=== PATIENT | male | born 1985 | race Caucasian/White ===

== ENCOUNTER 2021-04-26 13:36 | Emergency (ER) | payer MEDICAID ==
[~2021-04-26] VITALS: Ht 162.6 cm; Wt 50.0 kg
[2021-04-26] MEDS ORDERED: hydrocortisone sod succ/PF 250mg/2ml inj. IV ONE (13:50)
[2021-04-26] MEDS ORDERED: normal saline 1000ml 1,000 ML IV SCH ×3 (13:50→16:05)
[2021-04-26] MEDS ORDERED: potassium CL 20mEq in D5-1/2NS 1,000 ML IV PRN ×2 (13:50→16:05)
[2021-04-26] MEDS ORDERED: insulin regular, human 10 units/0.1 ml syringe IV PRN (13:50)
[2021-04-26] MEDS ORDERED: metoclopramide 5 mg/ml inj IV ONE (14:00)
[2021-04-26] MEDS: normal saline 1000ml 1,000 ML IV SCH ×2 (14:18→14:46)
[2021-04-26 14:29] LABS: ABG HCO3 13.2 mmol/L (22.0-26.0); ABG OXYGEN SATURATION 97.9 % (94-97); ABG PCO2 (T) 24.3 mmHg (35.0-48.0); ABG PO2 (T) 108.5 mmHg (75.0-100.0); ALLEN'S TEST POSITIVE; FCOHb 0.5 % (0.0-3.9); FMetHb 0.2 % (0.0-1.5); FO2Hb 97.2 % (94-97); TOTAL HEMOGLOBIN 16.7 G/dl (14.0-18.0)
[2021-04-26] MEDS ORDERED: Insulin Reg/NS 100units/100mL 100 ML IV SCH ×3 (14:30→16:17)
[2021-04-26] MEDS ORDERED: hydrocortisone sod succ/PF 100mg/2ml inj. IV ONE (14:35)
[2021-04-26 14:36] LABS: BASOPHILS % (AUTO) 0.6 % (0-1); EOSINOPHILS # (AUTO) 0.1 X10'3 (0-0.9); EOSINOPHILS % (AUTO) 1.8 % (0-6); HEMATOCRIT 50.5 % (42.0-52.0); HEMOGLOBIN 16.7 g/dl (14.0-17.9); LYMPHOCYTES # (AUTO) 1.7 X10'3 (1.1-4.8); LYMPHOCYTES % (AUTO) 23.1 % (21-51); MEAN CORPUSCULAR HEMOGLOBIN 28.9 PG (27.0-31.0); MEAN CORPUSCULAR VOLUME 87.6 FL (78-98); MEAN PLATELET VOLUME 9.3 FL (7.4-10.4); MONOCYTES # (AUTO) 0.6 X10'3 (0-0.9); MONOCYTES % (AUTO) 8.9 % (2-12); NEUTROPHILS # (AUTO) 4.8 X10'3 (1.8-7.7); NEUTROPHILS % (AUTO) 65.6 % (42-75); PLATELET COUNT 200 X10'3 (140-440); RED BLOOD COUNT 5.77 X10'6 (4.70-6.10); RED CELL DISTRIBUTION WIDTH 13.4 % (11.5-14.5); WHITE BLOOD COUNT 7.3 X10'3 (4.5-11.0)
[2021-04-26 14:59] LABS: ALANINE AMINOTRANSFERASE 50 U/L (12-78); ALBUMIN 4.2 G/DL (3.4-5.0); ALBUMIN/GLOBULIN RATIO 1.3 (1.1-1.5); ALKALINE PHOSPHATASE 69 IU/L (46-116); ANION GAP 24 (8-16); ASPARTATE AMINO TRANSFERASE 30 U/L (10-37); BILIRUBIN,TOTAL 0.7 MG/DL (0.1-1.0); BLOOD UREA NITROGEN 16 MG/DL (7-18); BUN/CREATININE RATIO 13.8 (5.4-32.0); C-REACTIVE PROTEIN 0.19 MG/DL (0.0-0.5); CALCIUM 9.4 MG/DL (8.5-10.1); CHLORIDE 94 MMOL/L (99-107); CREATININE 1.16 MG/DL (0.60-1.10); LIPASE 194 U/L (73-393); PHOSPHORUS 3.5 MG/DL (2.3-4.5); POTASSIUM 4.3 MMOL/L (3.5-5.1); SODIUM 135 MMOL/L (135-145); TOTAL CARBON DIOXIDE 17.1 MMOL/L (24-32); TOTAL PROTEIN 7.4 G/DL (6.4-8.2); eGFR 71 ML/MIN
[2021-04-26 15:11] LABS: GLUCOSE 573 MG/DL (70-104)
[2021-04-26 15:58] LABS: CLARITY,URINE CLEAR (Clear); COLOR,URINE YELLOW (Yellow); GLUCOSE, URINE 500 mg/dl (Neg); KETONES,URINE >=80 mg/dl (Neg); LEUKOCYTE ESTERASE ,URINE NEGATIVE (Neg); NITRITES, URINE NEGATIVE (Neg); OCCULT BLOOD,URINE NEGATIVE (Neg); PROTEIN,URINE NEGATIVE (Neg); UA COLLECTION TYPE CLN CATCH MIDSTREAM; UROBILINOGEN,URINE 0.2 E.U/dL (0.2-1.0)
[2021-04-26] MEDS ORDERED: magnesium 2GM in 50ml NS 50 ML IV PRN (16:05)
[2021-04-26] MEDS ORDERED: insulin regular, human U-100 3ml vial - multi-dose IV PRN (16:05)
[2021-04-26] MEDS ORDERED: magnesium hydroxide 30ml (MOM) UD suspension PO PRN (16:05)
[2021-04-26] MEDS ORDERED: HYDROcodone/acetaminophen 5mg/325mg tablet PO PRN (16:05)
[2021-04-26] MEDS ORDERED: sodium bicarbonate (8.4%) inj. 100 MEQ in dextrose 5% water 500ml 500 ML IV PRN (16:05)
[2021-04-26] MEDS ORDERED: sodium phosphate inj. 15 MMOL in dextrose 5%-water 250 ML IV PRN (16:05)
[2021-04-26] MEDS ORDERED: ondansetron/PF 4mg/2ml inj IV PRN (16:05)
[2021-04-26] MEDS ORDERED: magnesium Cl slow-release 64mg tablet PO PRN (16:05)
[2021-04-26] MEDS ORDERED: potassium Cl 20 mEq SR tablet PO PRN ×4 (16:05)
[2021-04-26] MEDS ORDERED: ALBUTEROL INHALER 1 PUFF/90 MCG INHALER IH PRN (16:05)
[2021-04-26] MEDS ORDERED: potassium Cl 40MEQ/1/2NS 520ml 520 ML IV PRN ×4 (16:05)
[2021-04-26] MEDS ORDERED: magnesium 4gm in 100ml NS 100 ML IV PRN (16:05)
[2021-04-26] MEDS ORDERED: morphine 2 MG/ML inj. syringe IV PRN (16:05)
[2021-04-26] MEDS ORDERED: Neutra Phos packet PO PRN (16:05)
[2021-04-26] MEDS ORDERED: sodium phosphate inj. 30 MMOL in dextrose 5%-water 250 ML IV PRN (16:05)
[2021-04-26] MEDS ORDERED: acetaminophen 325mg tablet PO PRN ×2 (16:05)
[2021-04-26] MEDS ORDERED: sodium bicarbonate (8.4%) inj. 50 MEQ in dextrose 5% water 500ml 250 ML IV PRN (16:05)
[2021-04-26] MEDS ORDERED: NO HOME MEDS (16:34)
[2021-04-26] MEDS ORDERED: INSU100V43 SQ (16:36)
[2021-04-26 18:54] VITALS: BP 100/61
[2021-04-26] MEDS ORDERED: K and/or MAG REPLACEMENT MC SCH ×2 (20:00)
[2021-04-26] MEDS ORDERED: dexamethasone 4mg/ml inj IV SCH (20:00)
[2021-04-26] MEDS ORDERED: heparin, porcine 5000 units/ml vial SQ SCH (20:00)
[2021-04-26 20:09] LABS: ALBUMIN 3.1 G/DL (3.4-5.0); ANION GAP 10 (8-16); BLOOD UREA NITROGEN 13 MG/DL (7-18); BUN/CREATININE RATIO 15.5 (5.4-32.0); CALCIUM 7.6 MG/DL (8.5-10.1); CHLORIDE 107 MMOL/L (99-107); CREATININE 0.84 MG/DL (0.60-1.10); GLUCOSE 149 MG/DL (70-104); PHOSPHORUS 1.6 MG/DL (2.3-4.5); POTASSIUM 3.6 MMOL/L (3.5-5.1); SODIUM 140 MMOL/L (135-145); TOTAL CARBON DIOXIDE 22.8 MMOL/L (24-32); eGFR > 90 ML/MIN
--- NOTE | 2021-04-26 20:55 | NUR ---
call dr Leblanc for AMA per pt request. pt stated " that he was feeling 10x better and wanted to go home. pt is A&O x 4 gait is steady. no aloc. spoke with dr Leblanc was ok with pt going AMA. risk and benefits given pt verbalize understanding
== END 2021-04-26 21:00 | disposition left against medical advice (07) ==
LOC: ER 13:38 → UNDOADMIN 16:08 → ED HOLD 16:08 → UNDODISIN 21:00
DX: U07.1 COVID-19 (principal); R11.2 Nausea with vomiting, unspecified; E10.10 Type 1 diabetes mellitus with ketoacidosis without coma; E27.1 Primary adrenocortical insufficiency; Z88.0 Allergy status to penicillin
CPT/HCPCS: 36415; 36600; 71045; 80048; 80053; 81003; 82803; 82948; 83605; 83690; 83735; 84100; 84145; 84443; 85018; 85025; 86140; 87040; 87635; 93005; 96365; 96366; 96375; 99291; C9803; J1720; J1815; J2765; J3480; J7030; 96361; 96376; G0378

== ENCOUNTER 2021-08-05 14:26 | Inpatient (IN) | payer MEDICAID ==
[~2021-08-05] VITALS: Ht 162.6 cm; Wt 50.0 kg
[~2021-08-05 14:26] MED LIST: INSU100V43 SQ
[2021-08-05 15:15] LABS: CLARITY,URINE CLEAR (Clear); GLUCOSE, URINE >=1000 mg/dl (Neg); KETONES,URINE >=80 mg/dl (Neg); LEUKOCYTE ESTERASE ,URINE NEGATIVE (Neg); NITRITES, URINE NEGATIVE (Neg); OCCULT BLOOD,URINE NEGATIVE (Neg); PROTEIN,URINE NEGATIVE (Neg); UROBILINOGEN,URINE 0.2 E.U/dL (0.2-1.0)
[2021-08-05 15:18] LABS: BASOPHILS # (AUTO) 0.1 X10'3 (0-0.2); EOSINOPHILS # (AUTO) 0.4 X10'3 (0-0.9); EOSINOPHILS % (AUTO) 3.6 % (0-6); HEMATOCRIT 46.7 % (42.0-52.0); HEMOGLOBIN 15.6 g/dl (14.0-17.9); LYMPHOCYTES # (AUTO) 2.7 X10'3 (1.1-4.8); LYMPHOCYTES % (AUTO) 24.6 % (21-51); MEAN CORPUSCULAR HEMOGLOBIN 29.3 PG (27.0-31.0); MEAN CORPUSCULAR HGB CONC 33.4 g/dL (33.0-36.5); MEAN CORPUSCULAR VOLUME 87.6 FL (78-98); MEAN PLATELET VOLUME 9.2 FL (7.4-10.4); MONOCYTES # (AUTO) 0.8 X10'3 (0-0.9); MONOCYTES % (AUTO) 7.6 % (2-12); NEUTROPHILS % (AUTO) 63.2 % (42-75); PLATELET COUNT 236 X10'3 (140-440); RED BLOOD COUNT 5.33 X10'6 (4.70-6.10); RED CELL DISTRIBUTION WIDTH 12.7 % (11.5-14.5); WHITE BLOOD COUNT 11.1 X10'3 (4.5-11.0)
[2021-08-05 15:28] LABS: COLOR,URINE STRAW (Yellow); UA COLLECTION TYPE CLN CATCH MIDSTREAM
[2021-08-05 15:28] LABS: ALANINE AMINOTRANSFERASE 22 U/L (12-78); ALBUMIN 4.3 G/DL (3.4-5.0); ALBUMIN/GLOBULIN RATIO 1.4 (1.1-1.5); ALKALINE PHOSPHATASE 75 IU/L (46-116); ANION GAP 22 (8-16); ASPARTATE AMINO TRANSFERASE 15 U/L (10-37); BLOOD UREA NITROGEN 17 MG/DL (7-18); BUN/CREATININE RATIO 15.5 (5.4-32.0); CALCIUM 9.8 MG/DL (8.5-10.1); CHLORIDE 96 MMOL/L (99-107); LIPASE 493 U/L (73-393); POTASSIUM 4.1 MMOL/L (3.5-5.1); SODIUM 136 MMOL/L (135-145); TOTAL CARBON DIOXIDE 18.1 MMOL/L (24-32); TOTAL PROTEIN 7.4 G/DL (6.4-8.2); eGFR 76 ML/MIN
[2021-08-05 15:29] LABS: BACTERIA,URINE NONE SEEN /HPF (Neg); RBC,URINE 0-2 /HPF (0-2); SQUAMOUS EPITHELIAL CELL,UR FEW /LPF (FEW); WBC,URINE 0-4 /HPF (0-4)
[2021-08-05 15:31] LABS: GLUCOSE 666 MG/DL (70-104)
[2021-08-05] MEDS ORDERED: normal saline 1000ml 1,000 ML IV ONE ×2 (15:35)
[2021-08-05] MEDS ORDERED: Neutra Phos packet PO PRN ×2 (15:55→17:20)
[2021-08-05] MEDS ORDERED: potassium Cl 20 mEq SR tablet PO PRN ×4 (15:55→17:20)
[2021-08-05] MEDS ORDERED: insulin regular, human 10 units/0.1 ml syringe IV PRN (15:55)
[2021-08-05] MEDS ORDERED: potassium Cl 40MEQ/1/2NS 520ml 520 ML IV PRN ×2 (15:55)
[2021-08-05] MEDS ORDERED: Insulin Reg/NS 100units/100mL 100 ML IV SCH ×2 (15:55→17:20)
[2021-08-05] MEDS ORDERED: sodium phosphate inj. 30 MMOL in dextrose 5%-water 250 ML IV PRN ×2 (15:55→17:20)
[2021-08-05] MEDS ORDERED: sodium phosphate inj. 15 MMOL in dextrose 5%-water 250 ML IV PRN ×2 (15:55→17:20)
[2021-08-05] MEDS ORDERED: ondansetron/PF 4mg/2ml inj IV ONE (15:55)
[2021-08-05] MEDS ORDERED: potassium CL 20mEq in D5-1/2NS 1,000 ML IV PRN ×2 (15:55→17:20)
[2021-08-05] MEDS: normal saline 1000ml 1,000 ML IV SCH ×5 (16:20→23:55)
[2021-08-05 16:56] LABS: ALBUMIN 4.4 G/DL (3.4-5.0); ANION GAP 25 (8-16); BLOOD UREA NITROGEN 20 MG/DL (7-18); BUN/CREATININE RATIO 16.3 (5.4-32.0); CALCIUM 9.6 MG/DL (8.5-10.1); CHLORIDE 95 MMOL/L (99-107); CREATININE 1.23 MG/DL (0.60-1.10); PHOSPHORUS 2.9 MG/DL (2.3-4.5); SODIUM 137 MMOL/L (135-145); TOTAL CARBON DIOXIDE 17.5 MMOL/L (24-32); eGFR 67 ML/MIN
[2021-08-05 17:03] LABS: GLUCOSE 634 MG/DL (70-104)
[2021-08-05] MEDS ORDERED: PRE1T PO (17:13)
[2021-08-05] MEDS ORDERED: INSU100I31 SQ (17:13)
[2021-08-05] MEDS ORDERED: LEVO88TA7 PO (17:13)
[2021-08-05] MEDS ORDERED: magnesium 4gm in 100ml NS 100 ML IV PRN (17:20)
[2021-08-05] MEDS ORDERED: mag hydrox/Alum hydrox/simeth 30ml oral suspension PO PRN (17:20)
[2021-08-05] MEDS ORDERED: normal saline 1000ml 1,000 ML IV SCH (17:20)
[2021-08-05] MEDS ORDERED: ondansetron/PF 4mg/2ml inj IV PRN (17:20)
[2021-08-05] MEDS ORDERED: acetaminophen 325mg tablet PO PRN ×2 (17:20)
[2021-08-05] MEDS ORDERED: insulin regular, human U-100 3ml vial - multi-dose IV PRN (17:20)
[2021-08-05] MEDS ORDERED: magnesium hydroxide 30ml (MOM) UD suspension PO PRN (17:20)
[2021-08-05] MEDS ORDERED: magnesium 2GM in 50ml NS 50 ML IV PRN (17:20)
[2021-08-05] MEDS ORDERED: potassium CL 10mEq/100ml bag 100 ML IV PRN (17:20)
[2021-08-05] MEDS ORDERED: sodium bicarbonate (8.4%) inj. 100 MEQ in dextrose 5% water 500ml 500 ML IV PRN (17:20)
[2021-08-05] MEDS ORDERED: sodium bicarbonate (8.4%) inj. 50 MEQ in dextrose 5% water 500ml 250 ML IV PRN (17:20)
[2021-08-05] MEDS ORDERED: HYDROcodone/acetaminophen 10/325mg tab PO PRN (17:20)
[2021-08-05] MEDS ORDERED: HYDROcodone/acetaminophen 5mg/325mg tablet PO PRN (17:20)
[2021-08-05] MEDS ORDERED: FLUD0.1T PO (17:52)
[2021-08-05 18:41] LABS: URINE AMPHETAMINE SCREEN NEGATIVE (Neg); URINE BARBITUATE SCREEN NEGATIVE (Neg); URINE BENZODIAZEPINES SCREEN NEGATIVE (Neg); URINE CANNABINOID SCREEN POSITIVE (Neg); URINE COCAINE SCREEN NEGATIVE (Neg); URINE METHADONE SCREEN NEGATIVE (Neg); URINE OPIATE SCREEN NEGATIVE (Neg); URINE PHENCYCLIDINE SCREEN NEGATIVE (Neg)
[2021-08-05] MEDS: docusate sod 100mg capsule PO SCH (19:38)
[2021-08-05] MEDS: K and/or MAG REPLACEMENT MC SCH (19:39)
[2021-08-05] MEDS ORDERED: enoxaparin 40mg/0.4ml syringe SQ SCH (20:00)
[2021-08-05] MEDS ORDERED: K and/or MAG REPLACEMENT MC SCH (20:00)
[2021-08-06 01:14] LABS: BASOPHILS # (AUTO) 0.1 X10'3 (0-0.2); BASOPHILS % (AUTO) 0.8 % (0-1); EOSINOPHILS # (AUTO) 0.5 X10'3 (0-0.9); EOSINOPHILS % (AUTO) 4.3 % (0-6); HEMATOCRIT 38.1 % (42.0-52.0); LYMPHOCYTES # (AUTO) 2.2 X10'3 (1.1-4.8); LYMPHOCYTES % (AUTO) 18.6 % (21-51); MEAN CORPUSCULAR HEMOGLOBIN 29.1 PG (27.0-31.0); MEAN CORPUSCULAR HGB CONC 34.2 g/dL (33.0-36.5); MEAN CORPUSCULAR VOLUME 85.1 FL (78-98); MONOCYTES # (AUTO) 0.6 X10'3 (0-0.9); MONOCYTES % (AUTO) 4.9 % (2-12); NEUTROPHILS # (AUTO) 8.4 X10'3 (1.8-7.7); NEUTROPHILS % (AUTO) 71.4 % (42-75); PLATELET COUNT 226 X10'3 (140-440); RED BLOOD COUNT 4.48 X10'6 (4.70-6.10); RED CELL DISTRIBUTION WIDTH 12.6 % (11.5-14.5); WHITE BLOOD COUNT 11.8 X10'3 (4.5-11.0)
--- NOTE | 2021-08-06 01:23 | NUR ---
Talked with Dr. Chapman regarding patient's descending BG values. Order given for D10 to be started at 100mls/hr, and to decrease insulin to 3u/hr.
--- NOTE | 2021-08-06 01:24 | NUR ---
Dr. Chapman stated to start D10 rate at 100ml/hr then to titrate D10 rate as needed to reach desired therapeutic range for BG while coming out of DKA (150-200).
[2021-08-06] MEDS ORDERED: sodium chloride inj. 154 MEQ in Dextrose 10%-water IV solution 961.5 ML IV SCH (01:25)
[2021-08-06] MEDS ORDERED: Dextrose 10%-water IV solution 1,000 ML IV SCH (01:30)
[2021-08-06 01:33] LABS: ALANINE AMINOTRANSFERASE 19 U/L (12-78); ALBUMIN 3.2 G/DL (3.4-5.0); ALBUMIN/GLOBULIN RATIO 1.3 (1.1-1.5); ALKALINE PHOSPHATASE 43 IU/L (46-116); ANION GAP 7 (8-16); ASPARTATE AMINO TRANSFERASE 11 U/L (10-37); BILIRUBIN,TOTAL 0.5 MG/DL (0.1-1.0); BLOOD UREA NITROGEN 11 MG/DL (7-18); BUN/CREATININE RATIO 15.1 (5.4-32.0); CALCIUM 7.7 MG/DL (8.5-10.1); CHLORIDE 111 MMOL/L (99-107); CREATININE 0.73 MG/DL (0.60-1.10); GLUCOSE 81 MG/DL (70-104); MAGNESIUM 1.5 MG/DL (1.5-2.4); PHOSPHORUS 1.6 MG/DL (2.3-4.5); POTASSIUM 3.8 MMOL/L (3.5-5.1); SODIUM 144 MMOL/L (135-145); TOTAL CARBON DIOXIDE 25.7 MMOL/L (24-32); TOTAL PROTEIN 5.7 G/DL (6.4-8.2); eGFR > 90 ML/MIN
[2021-08-06] MEDS: normal saline 1000ml 1,000 ML IV SCH ×2 (03:55→07:55)
--- NOTE | 2021-08-06 06:55 | NUR ---
CBG 115 AT 0700; DOCKED METER NOT UPLOADING.
--- NOTE | 2021-08-06 07:02 | NUR ---
ADMISSION MD PAGED FOR INPATIENT ORDERS/DIET.
--- NOTE | 2021-08-06 07:07 | NUR ---
SPOKE WITH DR. ELDRIDGE WHO STATES TO FOLLOW DKA PROTOCOL. OK TO DC D10 AND INSULIN DRIP AND FEED PATIENT.
[2021-08-06] MEDS ORDERED: insulin Lispro (HumaLOG) vial - multi-dose SQ SCH (07:10)
[2021-08-06] MEDS ORDERED: MESSAGE TO PHARMACY PO ONE (07:10)
[2021-08-06] MEDS ORDERED: dextrose 50%-water 50ml dispensing syringe IV PRN ×2 (07:10)
[2021-08-06] MEDS ORDERED: dextrose ORAL solution 15 GM/59 ML bottle PO PRN ×2 (07:10)
[2021-08-06] MEDS ORDERED: glucagon, human recombinant 1mg kit SUBCUT PRN (07:10)
[2021-08-06] MEDS ORDERED: levoTHYROXINE 88mcg tablet PO SCH (08:00)
[2021-08-06] MEDS: K and/or MAG REPLACEMENT MC SCH (08:00)
[2021-08-06] MEDS: docusate sod 100mg capsule PO SCH (08:00)
[2021-08-06] MEDS ORDERED: fludrocortisone acetate 0.1mg tablet PO SCH (08:00)
[2021-08-06] MEDS ORDERED: predniSONE 1 mg tablet PO SCH (08:00)
[2021-08-06 08:10] LABS: HEMOGLOBIN A1C 10.7 % (4.5-6.2)
--- NOTE | 2021-08-06 08:24 | NUR ---
PT 0800 CBG 79; INSULIN DRIP STOPPED. MEAL TRAY FOR PT TO EAT. D10 STILL RUNNING TO MAINTAIN BLOOD GLUCOSE. NO CORRECTION INSULIN GIVEN PER INSULIN ADJUSTMENT TOOL.
--- NOTE | 2021-08-06 10:29 | NUR ---
PT CBG 212. WILL ADMIN INSULIN ACCORDING TO ADJUSTMENT TOOL.
--- NOTE | 2021-08-06 10:54 | NUR ---
PAGED DR. ELDRIDGE X2; SPOKE WITH AND REQUESTED PT DC PER PT; STATES THAT HE IS MAKING ROUNDS AND WILL BE HERE SHORTLY. STATES TO CONTINUE TO MONITOR SUGARS.
--- NOTE | 2021-08-06 11:03 | NUR ---
PT REQUESTING TO LEAVE AMA AT THIS TIME. REFUSING TO WAIT FOR ATTENDING. PT STABLE AT THIS TIME. ALL VSS AND WDL. AMA FORM COMPLETED PER PT.
[2021-08-06 11:04] VITALS: BP 110/65
[2021-08-06] MEDS ORDERED: insulin glargine (Lantus) pen - multi-dose SQ SCH (21:00)
== END 2021-08-06 11:09 | disposition left against medical advice (07) | DRG 420 ==
LOC: ER 14:27 → UNDOADMIN 17:27 → ED HOLD 17:27 → EDBEDREQ 20:23 → UNDODISIN 08-06 11:09
PROVIDERS: ADMIT Family Medicine; ATTEND Family Medicine
DX: E10.10 Type 1 diabetes mellitus with ketoacidosis without coma (principal); E27.1 Primary adrenocortical insufficiency; Z53.29 Procedure and treatment not carried out because of patient's decision for other reasons; E03.9 Hypothyroidism, unspecified; Z79.4 Long term (current) use of insulin; Z86.16 Personal history of COVID-19; Z88.0 Allergy status to penicillin; Z79.899 Other long term (current) drug therapy
CPT/HCPCS: 36415; 80048; 80053; 80305; 81001; 82948; 83036; 83690; 83735; 84100; 84439; 84443; 85025; 96365; 99285; G0378; J1650; J1815; J2405; J3480; J3490; J7030; J7512

== ENCOUNTER 2022-01-05 10:41 | Inpatient (IN) | payer MEDICAID ==
[~2022-01-05] VITALS: Ht 162.6 cm; Wt 55.0 kg
[~2022-01-05 10:41] MED LIST changes: +FLUD0.1T PO; +INSU100I31 SQ; +LEVO88TA7 PO; +PRE1T PO
[2022-01-05] MEDS ORDERED: metoclopramide 5 mg/ml inj IV ONE (11:00)
[2022-01-05] MEDS ORDERED: normal saline 1000ML IV soln IVB ONE (11:00)
[2022-01-05] MEDS ORDERED: insulin regular, human U-100 3ml vial - multi-dose IV PRN (11:05)
[2022-01-05] MEDS ORDERED: Insulin Reg/NS 100units/100mL 100 ML IV SCH (11:05)
[2022-01-05] MEDS ORDERED: hydrocortisone sod succ/PF 250mg/2ml inj. IV ONE (11:05)
[2022-01-05] MEDS ORDERED: potassium CL 20mEq in D5-1/2NS 1,000 ML IV PRN (11:05)
[2022-01-05 11:37] LABS: ABG BASE EXCESS -9.1 mmol/L (-2.0-2.0); ABG HCO3 14.2 mmol/L (22.0-26.0); ABG OXYGEN SATURATION 97.8 % (94-97); ABG PCO2 (T) 25.4 mmHg (35.0-48.0); ALLEN'S TEST POSITIVE; FCOHb 1.6 % (0.0-3.9); FMetHb 0.2 % (0.0-1.5); TOTAL HEMOGLOBIN 15.3 G/dl (14.0-18.0)
[2022-01-05] MEDS ORDERED: proCHLORperazine 10 MG/2 ml inj IV ONE (11:45)
[2022-01-05] MEDS ORDERED: insulin regular, human 10 units/0.1 ml syringe IV PRN (11:55)
[2022-01-05] MEDS ORDERED: hydrocortisone sod succ/PF 100mg/2ml inj. IV ONE (12:00)
[2022-01-05 12:18] LABS: BASOPHILS # (AUTO) 0.1 X10'3 (0-0.2); BASOPHILS % (AUTO) 0.6 % (0-1); EOSINOPHILS # (AUTO) 0.7 X10'3 (0-0.9); EOSINOPHILS % (AUTO) 5.5 % (0-6); HEMATOCRIT 48.9 % (42.0-52.0); HEMOGLOBIN 16.2 g/dl (14.0-17.9); LYMPHOCYTES # (AUTO) 3.9 X10'3 (1.1-4.8); LYMPHOCYTES % (AUTO) 29.7 % (21-51); MEAN CORPUSCULAR HEMOGLOBIN 28.7 PG (27.0-31.0); MEAN CORPUSCULAR HGB CONC 33.1 g/dL (33.0-36.5); MEAN CORPUSCULAR VOLUME 86.8 FL (78-98); MEAN PLATELET VOLUME 9.3 FL (7.4-10.4); MONOCYTES # (AUTO) 1.1 X10'3 (0-0.9); MONOCYTES % (AUTO) 8.5 % (2-12); NEUTROPHILS # (AUTO) 7.2 X10'3 (1.8-7.7); NEUTROPHILS % (AUTO) 55.7 % (42-75); PLATELET COUNT 285 X10'3 (140-440); RED BLOOD COUNT 5.64 X10'6 (4.70-6.10); RED CELL DISTRIBUTION WIDTH 13.3 % (11.5-14.5)
[2022-01-05 12:24] LABS: ALANINE AMINOTRANSFERASE 22 U/L (12-78); ALBUMIN 4.3 G/DL (3.4-5.0); ALBUMIN/GLOBULIN RATIO 1.3 (1.1-1.5); ALKALINE PHOSPHATASE 53 IU/L (46-116); ANION GAP 22 (8-16); ASPARTATE AMINO TRANSFERASE 18 U/L (10-37); BILIRUBIN,TOTAL 1.1 MG/DL (0.1-1.0); BLOOD UREA NITROGEN 19 MG/DL (7-18); BUN/CREATININE RATIO 16.8 (5.4-32.0); CHLORIDE 95 MMOL/L (99-107); CREATININE 1.13 MG/DL (0.60-1.10); GLUCOSE 416 MG/DL (70-104); MAGNESIUM 1.8 MG/DL (1.5-2.4); SODIUM 136 MMOL/L (135-145); TOTAL PROTEIN 7.5 G/DL (6.4-8.2); eGFR 73 ML/MIN
[2022-01-05 12:35] LABS: UA COLLECTION TYPE URINAL
[2022-01-05 12:36] LABS: CLARITY,URINE CLEAR (Clear); COLOR,URINE YELLOW (Yellow); GLUCOSE, URINE 500 mg/dl (Neg); KETONES,URINE >=80 mg/dl (Neg); LEUKOCYTE ESTERASE ,URINE NEGATIVE (Neg); NITRITES, URINE NEGATIVE (Neg); OCCULT BLOOD,URINE NEGATIVE (Neg); PROTEIN,URINE NEGATIVE (Neg); UROBILINOGEN,URINE 0.2 E.U/dL (0.2-1.0)
--- NOTE | 2022-01-05 12:48 | NUR ---
spoke to ruperto sommer regarding patient iv insulin drip infusion ,as per md give 3rd bag of iv fluid and then repeat the lactic acid after the end of the bag and hold on to insulin drip ,recheck the bld sugar in 30 mins and go from there .will follow the orders.
--- NOTE | 2022-01-05 13:42 | NUR ---
as per pa ros repeat the accucheck in 30 mins.
--- NOTE | 2022-01-05 13:42 | NUR ---
notified ruperto sommer regarding patient bld sugar after the 3 rd bag of iv is 214 .as per pa no need of insulin at this time ,based on lab workup decide the poc.
[2022-01-05 14:03] LABS: ALANINE AMINOTRANSFERASE 17 U/L (12-78); ALBUMIN 3.1 G/DL (3.4-5.0); ALBUMIN/GLOBULIN RATIO 1.3 (1.1-1.5); ALKALINE PHOSPHATASE 36 IU/L (46-116); ANION GAP 13 (8-16); ASPARTATE AMINO TRANSFERASE 11 U/L (10-37); BILIRUBIN,TOTAL 0.6 MG/DL (0.1-1.0); BLOOD UREA NITROGEN 18 MG/DL (7-18); CALCIUM 7.1 MG/DL (8.5-10.1); CHLORIDE 109 MMOL/L (99-107); GLUCOSE 247 MG/DL (70-104); POTASSIUM 3.4 MMOL/L (3.5-5.1); SODIUM 140 MMOL/L (135-145); TOTAL CARBON DIOXIDE 17.8 MMOL/L (24-32); TOTAL PROTEIN 5.4 G/DL (6.4-8.2); eGFR 84 ML/MIN
[2022-01-05] MEDS ORDERED: ringers solution, lacted 1,000 ML IV SCH (14:15)
[2022-01-05] MEDS: normal saline 1000ml 1,000 ML IV SCH ×2 (14:41→15:05)
--- NOTE | 2022-01-05 14:42 | NUR ---
spoke to ruperto sommer and notified that patient B.S is 192 ,as per md no need of insulin drip and also n.s at 250 ml/hr.start with lactate ringer.will follow the orders.
[2022-01-05] MEDS ORDERED: normal saline 1000ml 1,000 ML IV SCH (14:50)
[2022-01-05] MEDS ORDERED: DEXTROSE 15 GM of carb/4 tabs (each vial/BOTTLE has 4 tablets) PO PRN ×2 (14:50)
[2022-01-05] MEDS ORDERED: acetaminophen 325mg tablet PO PRN ×2 (14:50)
[2022-01-05] MEDS ORDERED: magnesium hydroxide 30ml (MOM) UD suspension PO PRN (14:50)
[2022-01-05] MEDS ORDERED: glucagon, human recombinant 1mg kit SUBCUT PRN (14:50)
[2022-01-05] MEDS ORDERED: HYDROcodone/acetaminophen 10/325mg tab PO PRN (14:50)
[2022-01-05] MEDS ORDERED: MESSAGE TO PHARMACY PO ONE (14:50)
[2022-01-05] MEDS ORDERED: insulin Lispro (HumaLOG) vial - multi-dose SQ SCH (14:50)
[2022-01-05] MEDS ORDERED: dextrose 50%-water 50ml dispensing syringe IV PRN ×2 (14:50)
[2022-01-05] MEDS ORDERED: mag hydrox/Alum hydrox/simeth 30ml oral suspension PO PRN (14:50)
[2022-01-05] MEDS ORDERED: metoclopramide 5 mg/ml inj IV PRN (14:50)
[2022-01-05] MEDS ORDERED: HYDROcodone/acetaminophen 5mg/325mg tablet PO PRN (14:50)
[2022-01-05] MEDS ORDERED: ondansetron/PF 4mg/2ml inj IV PRN (14:50)
[2022-01-05] MEDS ORDERED: morphine 2 MG/ML inj. syringe IV PRN ×2 (14:50)
[2022-01-05 15:16] LABS: HEMOGLOBIN A1C 9.5 % (4.5-6.2)
--- NOTE | 2022-01-05 15:59 | NUR ---
PT RECIVING LR AT 150 ML/HR PER SAM IRWIN ORDERS,ONCES THE IV FLUID BAG WILL BE FINISH WE WILL SWITCH TO N.S AT 150 ML/HR .
--- NOTE | 2022-01-05 16:00 | NUR ---
NOTIFIED SAM IRWIN THAT PT IS RECIVING LR AT 150 ML/HR PER PA ITS OKAY TO KEEP LR INFUSING AT 150 ML/HR AND THEN SWITCH TO N.S WHEN IV FLUID BAG FINISH.
[2022-01-05] MEDS ORDERED: PRED1TAB PO (16:35)
[2022-01-05 17:15] VITALS: BP 117/69
--- NOTE | 2022-01-05 17:15 | NUR ---
received report from ANIYAH miller. patient arrived to floor. VSS. no complaints. blood glucose 332 however patient states he just ate in the ER before arriving to the floor.
[2022-01-05 18:00] VITALS: BP 142/83
--- NOTE | 2022-01-05 18:20 | NUR ---
Problems reprioritized. Patient report given, questions answered & plan of care reviewed with ANIYAH Carter.
--- NOTE | 2022-01-05 19:39 | NUR ---
pt wanted to leave ama,informed pt not safe for him to go home still wanted to go home.informed dr. segundo.
--- NOTE | 2022-01-05 19:45 | NUR ---
pt wheeled down to lobby where is waiting.
[2022-01-05] MEDS ORDERED: docusate sod 100mg capsule PO SCH (20:00)
[2022-01-05] MEDS ORDERED: insulin glargine (Lantus) pen - multi-dose SQ SCH (21:00)
== END 2022-01-05 19:59 | disposition left against medical advice (07) | DRG 420 ==
LOC: ER 10:41 → ED HOLD 14:51 → ORTHO 4S 17:08
PROVIDERS: ADMIT Internal Medicine; ATTEND Internal Medicine
DX: E10.10 Type 1 diabetes mellitus with ketoacidosis without coma (principal); E27.1 Primary adrenocortical insufficiency; E03.9 Hypothyroidism, unspecified; Z53.29 Procedure and treatment not carried out because of patient's decision for other reasons; Z82.49 Family history of ischemic heart disease and other diseases of the circulatory system; Z88.0 Allergy status to penicillin; Z79.899 Other long term (current) drug therapy; Z79.4 Long term (current) use of insulin
CPT/HCPCS: 36415; 36600; 80053; 81003; 82803; 82948; 83036; 83605; 83735; 84100; 84145; 85018; 85025; 87081; 96374; 96375; 99291; 99292; G0378; J0780; J1720; J1815; J2765; J7030; J7120

== ENCOUNTER 2022-01-06 05:56 | Inpatient (IN) | payer MEDICAID ==
[~2022-01-06] VITALS: Ht 162.6 cm; Wt 45.5 kg
[~2022-01-06 05:56] MED LIST changes: -PRE1T PO; +PRED1TAB PO
[2022-01-06 06:50] LABS: BASOPHILS # (AUTO) 0.1 X10'3 (0-0.2); BASOPHILS % (AUTO) 0.2 % (0-1); EOSINOPHILS % (AUTO) 0.2 % (0-6); HEMATOCRIT 43.9 % (42.0-52.0); HEMOGLOBIN 14.6 g/dl (14.0-17.9); LYMPHOCYTES # (AUTO) 2.8 X10'3 (1.1-4.8); LYMPHOCYTES % (AUTO) 9.9 % (21-51); MEAN CORPUSCULAR HEMOGLOBIN 28.5 PG (27.0-31.0); MEAN CORPUSCULAR HGB CONC 33.3 g/dL (33.0-36.5); MEAN CORPUSCULAR VOLUME 85.8 FL (78-98); MEAN PLATELET VOLUME 8.3 FL (7.4-10.4); MONOCYTES # (AUTO) 3.7 X10'3 (0-0.9); MONOCYTES % (AUTO) 12.9 % (2-12); NEUTROPHILS # (AUTO) 21.8 X10'3 (1.8-7.7); NEUTROPHILS % (AUTO) 76.8 % (42-75); PLATELET COUNT 287 X10'3 (140-440); RED BLOOD COUNT 5.12 X10'6 (4.70-6.10); RED CELL DISTRIBUTION WIDTH 13.1 % (11.5-14.5)
[2022-01-06] MEDS ORDERED: hydrocortisone sod succ/PF 250mg/2ml inj. IV ONE (06:55)
[2022-01-06 06:56] LABS: ALBUMIN 4.4 G/DL (3.4-5.0); ANION GAP 13 (8-16); BLOOD UREA NITROGEN 18 MG/DL (7-18); BUN/CREATININE RATIO 12.2 (5.4-32.0); CALCIUM 9.4 MG/DL (8.5-10.1); CHLORIDE 100 MMOL/L (99-107); CREATININE 1.47 MG/DL (0.60-1.10); GLUCOSE 304 MG/DL (70-104); PHOSPHORUS 1.4 MG/DL (2.3-4.5); POTASSIUM 3.5 MMOL/L (3.5-5.1); SODIUM 131 MMOL/L (135-145); TOTAL CARBON DIOXIDE 17.6 MMOL/L (24-32); eGFR 54 ML/MIN
[2022-01-06] MEDS ORDERED: normal saline 1000ML IV soln IVB ONE ×2 (07:00)
[2022-01-06] MEDS ORDERED: hydrocortisone sod succ/PF 100mg/2ml inj. IV ONE (07:00)
[2022-01-06 07:05] LABS: WHITE BLOOD COUNT 28.4 X10'3 (4.5-11.0)
[2022-01-06 07:28] LABS: TOTAL CELLS COUNTED 100
[2022-01-06 07:29] LABS: LARGE PLATELETS FEW; PLATELET ESTIMATE NORMAL
[2022-01-06 07:45] LABS: ABG HCO3 16.7 mmol/L (22.0-26.0); ABG PCO2 (T) 29.6 mmHg (35.0-48.0); ABG PO2 (T) 105.8 mmHg (75.0-100.0); ALLEN'S TEST POSITIVE; PATIENT TEMPERATURE 37.2
[2022-01-06] MEDS ORDERED: acetaminophen 325mg tablet PO PRN (08:10)
[2022-01-06] MEDS ORDERED: sodium phosphate inj. 15 MMOL in dextrose 5%-water 250 ML IV PRN (08:10)
[2022-01-06] MEDS ORDERED: HYDROcodone/acetaminophen 5mg/325mg tablet PO PRN (08:10)
[2022-01-06] MEDS ORDERED: POTASSIUM BICARB 20meq eff tab 20 MEQ TABLET.EFF PO PRN ×2 (08:10)
[2022-01-06] MEDS ORDERED: sodium phosphate inj. 30 MMOL in dextrose 5%-water 250 ML IV PRN (08:10)
[2022-01-06] MEDS ORDERED: potassium CL 20mEq in D5-1/2NS 1,000 ML IV PRN (08:10)
[2022-01-06] MEDS ORDERED: sodium bicarbonate (8.4%) inj. 50 MEQ in dextrose 5% water 500ml 250 ML IV PRN (08:10)
[2022-01-06] MEDS ORDERED: potassium CL 10mEq/100ml bag 100 ML IV PRN (08:10)
[2022-01-06] MEDS ORDERED: insulin regular, human U-100 3ml vial - multi-dose IV PRN (08:10)
[2022-01-06] MEDS ORDERED: potassium Cl 40MEQ/1/2NS 520ml 520 ML IV PRN ×2 (08:10)
[2022-01-06] MEDS ORDERED: magnesium 4gm in 100ml NS 100 ML IV PRN (08:10)
[2022-01-06] MEDS ORDERED: ondansetron/PF 4mg/2ml inj IV PRN (08:10)
[2022-01-06] MEDS ORDERED: normal saline 1000ml 1,000 ML IV SCH (08:10)
[2022-01-06] MEDS ORDERED: morphine 2 MG/ML inj. syringe IV PRN (08:10)
[2022-01-06] MEDS ORDERED: magnesium Cl slow-release 64mg tablet PO PRN (08:10)
[2022-01-06] MEDS ORDERED: sodium bicarbonate (8.4%) inj. 100 MEQ in dextrose 5% water 500ml 500 ML IV PRN (08:10)
[2022-01-06] MEDS ORDERED: magnesium 2GM in 50ml NS 50 ML IV PRN (08:10)
[2022-01-06] MEDS: fludrocortisone acetate 0.1mg tablet PO SCH (08:50)
[2022-01-06] MEDS: levoTHYROXINE 88mcg tablet PO SCH (08:55)
[2022-01-06] MEDS: Insulin Reg/NS 100units/100mL 100 ML IV SCH ×3 (09:10→13:40)
--- NOTE | 2022-01-06 09:10 | NUR ---
bg 250, dr. Bundy made aware, no insulin bolus prior insulin drip start.
--- NOTE | 2022-01-06 09:11 | NUR ---
K 3.5, do not administer potassium IV per Dr. Bundy, BG 250mg/dl,dr. Bundy aware, start 2.5ml/hour insulin.
[2022-01-06] MEDS: CefTRIAXone 2gm/NS 100ml IVPB 100 ML IV SCH (09:16)
[2022-01-06] MEDS: dextrose 5%-1/2 normal saline 1,000 ML IV SCH ×3 (10:10→23:47)
[2022-01-06 10:32] LABS: CLARITY,URINE CLEAR (Clear); COLOR,URINE YELLOW (Yellow); GLUCOSE, URINE >=1000 mg/dl (Neg); KETONES,URINE >=80 mg/dl (Neg); LEUKOCYTE ESTERASE ,URINE NEGATIVE (Neg); NITRITES, URINE NEGATIVE (Neg); OCCULT BLOOD,URINE TRACE-INTACT (Neg); PROTEIN,URINE NEGATIVE (Neg); UROBILINOGEN,URINE 0.2 E.U/dL (0.2-1.0)
[2022-01-06 10:53] LABS: UA COLLECTION TYPE CLN CATCH MIDSTREAM
[2022-01-06 11:09] LABS: BACTERIA,URINE NONE SEEN /HPF (Neg); RBC,URINE 0-2 /HPF (0-2); SQUAMOUS EPITHELIAL CELL,UR NONE SEEN /LPF (FEW); WBC,URINE NONE SEEN /HPF (0-4)
[2022-01-06 12:09] LABS: ALBUMIN 3.6 G/DL (3.4-5.0); ANION GAP 12 (8-16); BLOOD UREA NITROGEN 14 MG/DL (7-18); BUN/CREATININE RATIO 13.2 (5.4-32.0); CALCIUM 8.2 MG/DL (8.5-10.1); CHLORIDE 108 MMOL/L (99-107); CREATININE 1.06 MG/DL (0.60-1.10); GLUCOSE 245 MG/DL (70-104); POTASSIUM 3.9 MMOL/L (3.5-5.1); SODIUM 137 MMOL/L (135-145); TOTAL CARBON DIOXIDE 16.9 MMOL/L (24-32); eGFR 79 ML/MIN
[2022-01-06 13:22] LABS: BASOPHILS # (AUTO) 0.1 X10'3 (0-0.2); BASOPHILS % (AUTO) 0.5 % (0-1); EOSINOPHILS % (AUTO) 0.2 % (0-6); HEMATOCRIT 38.4 % (42.0-52.0); HEMOGLOBIN 12.9 g/dl (14.0-17.9); LYMPHOCYTES % (AUTO) 5.4 % (21-51); MEAN CORPUSCULAR HEMOGLOBIN 28.5 PG (27.0-31.0); MEAN CORPUSCULAR HGB CONC 33.6 g/dL (33.0-36.5); MEAN CORPUSCULAR VOLUME 84.8 FL (78-98); MEAN PLATELET VOLUME 8.1 FL (7.4-10.4); MONOCYTES # (AUTO) 0.5 X10'3 (0-0.9); MONOCYTES % (AUTO) 2.9 % (2-12); NEUTROPHILS # (AUTO) 16.9 X10'3 (1.8-7.7); PLATELET COUNT 239 X10'3 (140-440); RED BLOOD COUNT 4.53 X10'6 (4.70-6.10); RED CELL DISTRIBUTION WIDTH 13.1 % (11.5-14.5); WHITE BLOOD COUNT 18.6 X10'3 (4.5-11.0)
--- NOTE | 2022-01-06 13:32 | NUR ---
called Dr. Bundy and reported bg 220mg/dl and that pt is on insulin 5ml/hour and d5 1/2 NS 150ml,-RN would like to know if it's ok to double insulin rate since goal is BG 150-200mg/dl, and bg is slowly coming down.Md ordered to decrease Insulin to 2.5 ml instead and continue with d5 1/2 NS.We will monitor.
--- NOTE | 2022-01-06 13:47 | NUR ---
bed changed x 2, pt voided in his sleep.
[2022-01-06 15:20] VITALS: BP 128/74
--- NOTE | 2022-01-06 17:30 | NUR ---
PAGER ID: [phone] MESSAGE: [phone] Harley Manuel: Patient has critical lab value - Phos 1.2 Marium PCU
--- NOTE | 2022-01-06 17:40 | NUR ---
Accidentally paged Bill instead of Magu. Magu paged PAGER ID: [phone] MESSAGE: [phone] Harley Manuel: Patient has critical lab value - Phos 1.2 Marium PCU
[2022-01-06] MEDS: Neutra Phos packet PO PRN ×2 (17:47→23:32)
[2022-01-06 17:57] LABS: BASOPHILS # (AUTO) 0.1 X10'3 (0-0.2); BASOPHILS % (AUTO) 0.4 % (0-1); EOSINOPHILS % (AUTO) 0 % (0-6); HEMATOCRIT 38.6 % (42.0-52.0); HEMOGLOBIN 12.7 g/dl (14.0-17.9); LYMPHOCYTES % (AUTO) 5.5 % (21-51); MEAN CORPUSCULAR HEMOGLOBIN 27.7 PG (27.0-31.0); MEAN CORPUSCULAR HGB CONC 32.9 g/dL (33.0-36.5); MEAN CORPUSCULAR VOLUME 84.3 FL (78-98); MEAN PLATELET VOLUME 8.3 FL (7.4-10.4); MONOCYTES % (AUTO) 5.2 % (2-12); NEUTROPHILS # (AUTO) 16.6 X10'3 (1.8-7.7); NEUTROPHILS % (AUTO) 88.9 % (42-75); PLATELET COUNT 242 X10'3 (140-440); RED BLOOD COUNT 4.58 X10'6 (4.70-6.10); RED CELL DISTRIBUTION WIDTH 13.1 % (11.5-14.5); WHITE BLOOD COUNT 18.7 X10'3 (4.5-11.0)
[2022-01-06 18:00] VITALS: BP 113/75
[2022-01-06 18:23] LABS: ALBUMIN 3.5 G/DL (3.4-5.0); ANION GAP 9 (8-16); BLOOD UREA NITROGEN 9 MG/DL (7-18); BUN/CREATININE RATIO 9.8 (5.4-32.0); CALCIUM 8.5 MG/DL (8.5-10.1); CHLORIDE 111 MMOL/L (99-107); CREATININE 0.92 MG/DL (0.60-1.10); GLUCOSE 115 MG/DL (70-104); POTASSIUM 3.1 MMOL/L (3.5-5.1); SODIUM 143 MMOL/L (135-145); TOTAL CARBON DIOXIDE 23.4 MMOL/L (24-32); eGFR > 90 ML/MIN
[2022-01-06 18:26] LABS: PHOSPHORUS 0.9 MG/DL (2.3-4.5)
--- NOTE | 2022-01-06 18:30 | NUR ---
Called Dr Bundy cell phone and told her patient has critical lab value phos 0.9 and she said to not call her cell phone. She stated she already put in an order for phos and i did not need to call her. I told her that i was reporting another critical phos level of 0.9 and she said i did not need to call her for that, and i could have paged her. Since i didnt get a response to my first page about patients critical value, i felt it was more than appropriate to call her cell phone.
[2022-01-06 18:35] VITALS: BP 128/74
--- NOTE | 2022-01-06 18:41 | NUR ---
Trudy Khan: Harley Rosas room 3012-C admitted for ketoacidosis currently on insulin gtt. Has critical Phos of 0.9. Pt meets protocol for Phos IV but only has Phos PO ordered. --Anna DILL Pending response Addendum: 01/06/22 at 1901 by Anna Parsons RN Spoke with Dr. Bundy. No New orders
[2022-01-06] MEDS: Neutra Phos packet PO SCH ×2 (18:50→21:00)
[2022-01-06] MEDS: K and/or MAG REPLACEMENT MC SCH ×2 (19:30→20:00)
--- NOTE | 2022-01-06 20:20 | NUR ---
Pt tolerated PO intake. Short acting insulin not administered d/t blood sugar of 80. Verified with storage battery charger before ending insulin gtt.
[2022-01-06] MEDS ORDERED: insulin glargine (Lantus) pen - multi-dose SQ ONE (23:30)
[2022-01-06] MEDS: potassium Cl 20 mEq SR tablet PO PRN (23:35)
--- NOTE | 2022-01-07 00:36 | NUR ---
Inquired about post insulin gtt electrolyte monitoring as protocol not clear. Per charge machine operator, next labs to be done with morning labs.
--- NOTE | 2022-01-07 02:24 | NUR ---
Paged Dr. Khan: Harley Manuel room 3012-C admitted for DKA has not been able to sleep. Would you consider a sleeping aid? Thanks, Anna DILL Pending response
[2022-01-07] MEDS: Melatonin 3mg tablet PO SCH ×2 (02:41→20:18)
[2022-01-07 02:42] VITALS: BP 121/72
[2022-01-07] MEDS: potassium Cl 20 mEq SR tablet PO PRN ×4 (03:41→20:18)
[2022-01-07 06:00] VITALS: BP 123/77
[2022-01-07] MEDS: dextrose 5%-1/2 normal saline 1,000 ML IV SCH ×3 (06:10→23:38)
--- NOTE | 2022-01-07 06:25 | NUR ---
Patient in room PCU 3012. I have received report from Anna DILL and had the opportunity to ask questions and assume patient care.
[2022-01-07 06:30] LABS: BASOPHILS # (AUTO) 0.1 X10'3 (0-0.2); BASOPHILS % (AUTO) 0.4 % (0-1); EOSINOPHILS # (AUTO) 0.1 X10'3 (0-0.9); EOSINOPHILS % (AUTO) 0.4 % (0-6); HEMATOCRIT 33.8 % (42.0-52.0); HEMOGLOBIN 11.5 g/dl (14.0-17.9); LYMPHOCYTES # (AUTO) 2.9 X10'3 (1.1-4.8); LYMPHOCYTES % (AUTO) 20.9 % (21-51); MEAN CORPUSCULAR HEMOGLOBIN 28.7 PG (27.0-31.0); MEAN CORPUSCULAR HGB CONC 34.1 g/dL (33.0-36.5); MEAN PLATELET VOLUME 8.1 FL (7.4-10.4); MONOCYTES # (AUTO) 1.2 X10'3 (0-0.9); MONOCYTES % (AUTO) 8.5 % (2-12); NEUTROPHILS # (AUTO) 9.8 X10'3 (1.8-7.7); NEUTROPHILS % (AUTO) 69.8 % (42-75); PLATELET COUNT 187 X10'3 (140-440); RED BLOOD COUNT 4.02 X10'6 (4.70-6.10); RED CELL DISTRIBUTION WIDTH 13.2 % (11.5-14.5)
[2022-01-07 06:43] LABS: ALBUMIN 2.8 G/DL (3.4-5.0); ANION GAP 9 (8-16); BLOOD UREA NITROGEN 5 MG/DL (7-18); BUN/CREATININE RATIO 6.8 (5.4-32.0); CALCIUM 8.1 MG/DL (8.5-10.1); CHLORIDE 110 MMOL/L (99-107); CREATININE 0.74 MG/DL (0.60-1.10); GLUCOSE 154 MG/DL (70-104); PHOSPHORUS 1.8 MG/DL (2.3-4.5); SODIUM 141 MMOL/L (135-145); TOTAL CARBON DIOXIDE 22.2 MMOL/L (24-32); eGFR > 90 ML/MIN
[2022-01-07] MEDS: K and/or MAG REPLACEMENT MC SCH ×4 (08:00→20:00)
[2022-01-07] MEDS: CefTRIAXone 2gm/NS 100ml IVPB 100 ML IV SCH (09:03)
[2022-01-07] MEDS: Neutra Phos packet PO SCH ×3 (09:04→20:17)
[2022-01-07] MEDS: fludrocortisone acetate 0.1mg tablet PO SCH (09:05)
[2022-01-07] MEDS: levoTHYROXINE 88mcg tablet PO SCH (09:05)
[2022-01-07] MEDS: predniSONE 5mg tablet PO SCH (09:06)
[2022-01-07 11:00] VITALS: BP 118/77
--- NOTE | 2022-01-07 11:36 | NUR ---
Initial: Pt admit for DKA, current A1c is 9.5% which is down from 10.7% 08/06/21 per EMR. Pt seen at bedside for written and verbal DM education. Pt states he just recently started going to the [facility] in April 2021 for DM management and states he's gone there about three times now. Pt reports checking BG levels 6-10 times a day and states he takes his insulin per rx without difficulties. 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 RD recommended calibrating glucometer to ensure it's reading appropriately. All questions were answered at this time. RD contact information provided and pt encouraged to reach out if needed. Noted pt with a low BMI using scaled wt of 100 lbs. Pt states UBW averages 110 lbs though possibly lower recently. Prior to event of DKA with N/V patient states he was eating well. No visible fat or muscle wasting and per EMR no decrease in muscle strength or edema. No concerns for malnutrition at this time. Pt reports a sore throat at this time of which he states he has d/w physician and is pending throat lozenges. Pt denies food allergies or difficulty chewing/swallowing. Pt reports LBM 5/30 and denies feeling constipated at this time. No nutrition intervention implemented at this time. Will continue to follow. Recommendations: 1) Continue CHO controlled diet 2) Monitor need for ONS 3) Routine bowel care 4) Weekly scaled weights Addendum: 01/07/22 at [address] Amended: Links added.
[2022-01-07] MEDS ORDERED: glucagon, human recombinant 1mg kit SUBCUT PRN (13:40)
[2022-01-07] MEDS ORDERED: DEXTROSE 15 GM of carb/4 tabs (each vial/BOTTLE has 4 tablets) PO PRN ×2 (13:40)
[2022-01-07] MEDS ORDERED: dextrose 50%-water 50ml dispensing syringe IV PRN ×2 (13:40)
[2022-01-07] MEDS ORDERED: benzocaine/menthol oral lozeng 1 EACH BOX MM PRN (14:40)
[2022-01-07 15:00] VITALS: BP 120/81
[2022-01-07] MEDS: insulin Lispro (HumaLOG) vial - multi-dose SQ SCH ×2 (15:26→18:53)
[2022-01-07 18:00] VITALS: BP 128/86
--- NOTE | 2022-01-07 18:22 | NUR ---
Paged Dr. Bundy regarding pts critical BG of 19 and I pushed D50. After 15 mins it came up to 120. PAGER ID: [phone] MESSAGE: [phone], Alison Souza. Pts blood sugar was 19, I pushed D50 and his blood sugar came up to 120. Opal [facility] [id number]
--- NOTE | 2022-01-07 18:54 | NUR ---
Dinner nutritional insulin held d/t minimal PO intake and recent hypoglycemic episode.
[2022-01-07] MEDS ORDERED: insulin glargine (Lantus) pen - multi-dose SQ SCH (21:00)
--- NOTE | 2022-01-07 23:22 | NUR ---
Paged Dr. Schafer: Harley Manuel rm 3012-C admitted for DKA which has since resolved. He has taken melatonin two nights in a row and has not been able to sleep. Would you consider Resoril for this patient? Thank you kindly! Anna DILL Pending response. Addendum: 01/07/22 at 5956 by Anna Parsons RN New orders placed by this ANIYAH per MD request via telephone with read-back.
[2022-01-07] MEDS ORDERED: temazepam 15mg capsule PO PRN (23:25)
[2022-01-08 02:05] VITALS: BP 113/69
[2022-01-08 06:00] VITALS: BP 119/81
[2022-01-08] MEDS: Neutra Phos packet PO SCH (07:41)
[2022-01-08] MEDS: predniSONE 5mg tablet PO SCH (07:41)
[2022-01-08] MEDS: levoTHYROXINE 88mcg tablet PO SCH (07:41)
[2022-01-08] MEDS: fludrocortisone acetate 0.1mg tablet PO SCH (07:41)
[2022-01-08] MEDS: CefTRIAXone 2gm/NS 100ml IVPB 100 ML IV SCH (07:42)
[2022-01-08] MEDS: K and/or MAG REPLACEMENT MC SCH ×2 (08:00)
[2022-01-08] MEDS ORDERED: PRED1TAB PO (10:37)
[2022-01-08 11:58] LABS: BASOPHILS # (AUTO) 0.1 X10'3 (0-0.2); BASOPHILS % (AUTO) 0.7 % (0-1); EOSINOPHILS # (AUTO) 0.3 X10'3 (0-0.9); EOSINOPHILS % (AUTO) 3.6 % (0-6); HEMATOCRIT 39.2 % (42.0-52.0); HEMOGLOBIN 13.1 g/dl (14.0-17.9); LYMPHOCYTES # (AUTO) 1.6 X10'3 (1.1-4.8); LYMPHOCYTES % (AUTO) 19.8 % (21-51); MEAN CORPUSCULAR HEMOGLOBIN 28.2 PG (27.0-31.0); MEAN CORPUSCULAR HGB CONC 33.3 g/dL (33.0-36.5); MEAN CORPUSCULAR VOLUME 84.5 FL (78-98); MEAN PLATELET VOLUME 8.9 FL (7.4-10.4); MONOCYTES # (AUTO) 0.6 X10'3 (0-0.9); NEUTROPHILS # (AUTO) 5.7 X10'3 (1.8-7.7); NEUTROPHILS % (AUTO) 68.9 % (42-75); PLATELET COUNT 201 X10'3 (140-440); RED BLOOD COUNT 4.64 X10'6 (4.70-6.10); WHITE BLOOD COUNT 8.3 X10'3 (4.5-11.0)
[2022-01-08 12:07] LABS: ALANINE AMINOTRANSFERASE 24 U/L (12-78); ALBUMIN 3.2 G/DL (3.4-5.0); ALBUMIN/GLOBULIN RATIO 1.1 (1.1-1.5); ALKALINE PHOSPHATASE 45 IU/L (46-116); ANION GAP 9 (8-16); ASPARTATE AMINO TRANSFERASE 15 U/L (10-37); BILIRUBIN,TOTAL 0.6 MG/DL (0.1-1.0); BLOOD UREA NITROGEN 3 MG/DL (7-18); BUN/CREATININE RATIO 4.3 (5.4-32.0); CALCIUM 8.7 MG/DL (8.5-10.1); CHLORIDE 106 MMOL/L (99-107); GLUCOSE 168 MG/DL (70-104); MAGNESIUM 1.7 MG/DL (1.5-2.4); PHOSPHORUS 3.9 MG/DL (2.3-4.5); POTASSIUM 3.4 MMOL/L (3.5-5.1); SODIUM 142 MMOL/L (135-145); TOTAL CARBON DIOXIDE 26.8 MMOL/L (24-32); TOTAL PROTEIN 6.1 G/DL (6.4-8.2); eGFR > 90 ML/MIN
--- NOTE | 2022-01-08 12:12 | NUR ---
Paged Dr. Bundy regarding whether patient can leave or not. PAGER ID: [phone] MESSAGE: [phone], Dequanloi Bellew. Patients labs are back K+ is 3.4 but otherwise unremarkable. He is waiting to leave. Opal [facility] 1984.
== END 2022-01-08 12:19 | disposition home or self-care (01) | DRG 420 ==
LOC: ER 05:57 → ED HOLD 08:14 → PCU 3S 16:36
PROVIDERS: ADMIT Internal Medicine; ATTEND Internal Medicine
DX: E10.10 Type 1 diabetes mellitus with ketoacidosis without coma (principal); N17.9 Acute kidney failure, unspecified; E27.1 Primary adrenocortical insufficiency; E87.1 Hypo-osmolality and hyponatremia; E83.39 Other disorders of phosphorus metabolism; E03.9 Hypothyroidism, unspecified; Z88.0 Allergy status to penicillin; Z82.49 Family history of ischemic heart disease and other diseases of the circulatory system; E87.6 Hypokalemia
CPT/HCPCS: 36415; 36600; 80048; 80053; 81001; 82803; 82948; 83605; 83735; 84100; 84132; 84443; 85007; 85025; 87040; 97116; 97161; 97530; 99285; G0378; J0696; J1720; J1815; J3490; J7030; J7042; J7512

== ENCOUNTER 2022-02-01 09:50 | Emergency (ER) | payer MEDICAID ==
[~2022-02-01] VITALS: Ht 162.6 cm; Wt 49.0 kg
[2022-02-01] MEDS ORDERED: normal saline 1000ML IV soln IVB ONE ×2 (10:45→13:30)
[2022-02-01 10:55] LABS: BASOPHILS # (AUTO) 0.1 X10'3 (0-0.2); BASOPHILS % (AUTO) 0.5 % (0-1); EOSINOPHILS # (AUTO) 0.5 X10'3 (0-0.9); EOSINOPHILS % (AUTO) 3.2 % (0-6); HEMATOCRIT 46.7 % (42.0-52.0); HEMOGLOBIN 15.6 g/dl (14.0-17.9); LYMPHOCYTES # (AUTO) 1.9 X10'3 (1.1-4.8); LYMPHOCYTES % (AUTO) 11.4 % (21-51); MEAN CORPUSCULAR HEMOGLOBIN 28.7 PG (27.0-31.0); MEAN CORPUSCULAR HGB CONC 33.5 g/dL (33.0-36.5); MEAN CORPUSCULAR VOLUME 85.6 FL (78-98); MEAN PLATELET VOLUME 8.8 FL (7.4-10.4); MONOCYTES # (AUTO) 0.8 X10'3 (0-0.9); MONOCYTES % (AUTO) 4.6 % (2-12); NEUTROPHILS # (AUTO) 13.6 X10'3 (1.8-7.7); NEUTROPHILS % (AUTO) 80.3 % (42-75); PLATELET COUNT 257 X10'3 (140-440); RED BLOOD COUNT 5.45 X10'6 (4.70-6.10); RED CELL DISTRIBUTION WIDTH 13.3 % (11.5-14.5)
[2022-02-01] MEDS ORDERED: ondansetron/PF 4mg/2ml inj IV ONE (11:00)
[2022-02-01 11:11] LABS: ALANINE AMINOTRANSFERASE 30 U/L (12-78); ALBUMIN 4.2 G/DL (3.4-5.0); ALBUMIN/GLOBULIN RATIO 1.4 (1.1-1.5); ALKALINE PHOSPHATASE 48 IU/L (46-116); ANION GAP 16 (8-16); ASPARTATE AMINO TRANSFERASE 8 U/L (10-37); BLOOD UREA NITROGEN 21 MG/DL (7-18); BUN/CREATININE RATIO 25.3 (5.4-32.0); CALCIUM 9.3 MG/DL (8.5-10.1); CHLORIDE 98 MMOL/L (99-107); CREATININE 0.83 MG/DL (0.60-1.10); GLUCOSE 342 MG/DL (70-104); MAGNESIUM 1.6 MG/DL (1.5-2.4); PHOSPHORUS 1.6 MG/DL (2.3-4.5); POTASSIUM 3.8 MMOL/L (3.5-5.1); SODIUM 137 MMOL/L (135-145); TOTAL CARBON DIOXIDE 22.7 MMOL/L (24-32); TOTAL PROTEIN 7.3 G/DL (6.4-8.2); eGFR > 90 ML/MIN
[2022-02-01 11:17] LABS: PLATELET ESTIMATE NORMAL; TOTAL CELLS COUNTED 100
[2022-02-01] MEDS ORDERED: sodium phosphate inj. 15 MMOL in dextrose 5%-water 250 ML IV ONE (11:30)
[2022-02-01 12:21] LABS: CLARITY,URINE CLEAR (Clear); COLOR,URINE YELLOW (Yellow); GLUCOSE, URINE 500 mg/dl (Neg); KETONES,URINE >=80 mg/dl (Neg); LEUKOCYTE ESTERASE ,URINE NEGATIVE (Neg); NITRITES, URINE NEGATIVE (Neg); OCCULT BLOOD,URINE NEGATIVE (Neg); PH,URINE 5.5 (4.8-8.0); PROTEIN,URINE NEGATIVE (Neg); UA COLLECTION TYPE VOIDED; UROBILINOGEN,URINE 0.2 E.U/dL (0.2-1.0)
--- NOTE | 2022-02-01 13:26 | NUR ---
provided with sugar free cande.
[2022-02-01] MEDS ORDERED: Insulin ASPART (NovoLOG) pen SQ ONE (13:30)
[2022-02-01] MEDS ORDERED: insulin regular, human 10 units/0.1 ml syringe SQ ONE (13:35)
[2022-02-01] MEDS ORDERED: NEUPHOSK PO ×2 (15:16)
[2022-02-01] MEDS ORDERED: ONDA4TAB12 PO ×2 (15:18)
[2022-02-01] MEDS ORDERED: PROM12.574 RC ×2 (15:25)
[2022-02-01 17:00] VITALS: BP 128/78
--- NOTE | 2022-02-01 17:19 | NUR ---
per provider, pt ok to discharge prior to completing full infusion.
== END 2022-02-01 17:22 | disposition home or self-care (01) ==
LOC: ER 09:50
DX: E83.31 Familial hypophosphatemia (principal); E11.65 Type 2 diabetes mellitus with hyperglycemia; E06.9 Thyroiditis, unspecified; Z88.0 Allergy status to penicillin; Z79.899 Other long term (current) drug therapy
CPT/HCPCS: 36415; 80053; 81003; 82009; 82948; 83735; 84100; 84484; 85007; 85025; 93005; 96365; 96366; 96372; 96375; 99284; J1815; J2405; J3490; J7030; J7060; 96374

== ENCOUNTER 2022-02-01 19:37 | Inpatient (IN) | payer MEDICAID ==
[~2022-02-01] VITALS: Ht 162.6 cm; Wt 49.9 kg
[~2022-02-01 19:37] MED LIST changes: +NEUPHOSK PO; +ONDA4TAB12 PO; +PROM12.574 RC
[2022-02-01 20:25] LABS: BASOPHILS # (AUTO) 0.1 X10'3 (0-0.2); BASOPHILS % (AUTO) 0.4 % (0-1); EOSINOPHILS % (AUTO) 0.2 % (0-6); HEMATOCRIT 48.2 % (42.0-52.0); HEMOGLOBIN 15.8 g/dl (14.0-17.9); LYMPHOCYTES # (AUTO) 1.8 X10'3 (1.1-4.8); LYMPHOCYTES % (AUTO) 10.9 % (21-51); MEAN CORPUSCULAR HEMOGLOBIN 28.8 PG (27.0-31.0); MEAN CORPUSCULAR HGB CONC 32.7 g/dL (33.0-36.5); MEAN CORPUSCULAR VOLUME 88.1 FL (78-98); MONOCYTES # (AUTO) 1.1 X10'3 (0-0.9); MONOCYTES % (AUTO) 6.9 % (2-12); NEUTROPHILS # (AUTO) 13.6 X10'3 (1.8-7.7); NEUTROPHILS % (AUTO) 81.6 % (42-75); PLATELET COUNT 291 X10'3 (140-440); RED BLOOD COUNT 5.47 X10'6 (4.70-6.10); RED CELL DISTRIBUTION WIDTH 13.2 % (11.5-14.5); WHITE BLOOD COUNT 16.7 X10'3 (4.5-11.0)
[2022-02-01 20:43] LABS: ALANINE AMINOTRANSFERASE 33 U/L (12-78); ALBUMIN 4.9 G/DL (3.4-5.0); ALBUMIN/GLOBULIN RATIO 1.6 (1.1-1.5); ALKALINE PHOSPHATASE 55 IU/L (46-116); ANION GAP 24 (8-16); ASPARTATE AMINO TRANSFERASE 12 U/L (10-37); BLOOD UREA NITROGEN 21 MG/DL (7-18); BUN/CREATININE RATIO 16.8 (5.4-32.0); CALCIUM 9.1 MG/DL (8.5-10.1); CHLORIDE 95 MMOL/L (99-107); CREATININE 1.25 MG/DL (0.60-1.10); MAGNESIUM 1.6 MG/DL (1.5-2.4); POTASSIUM 4.6 MMOL/L (3.5-5.1); SODIUM 134 MMOL/L (135-145); TOTAL CARBON DIOXIDE 15.1 MMOL/L (24-32); eGFR 65 ML/MIN
[2022-02-01 20:45] LABS: GLUCOSE 454 MG/DL (70-104)
[2022-02-01] MEDS: normal saline 1000ML IV soln IV ONE ×2 (20:48→21:00)
[2022-02-01] MEDS ORDERED: Insulin Reg/NS 100units/100mL 100 ML IV PRN (20:50)
[2022-02-01] MEDS ORDERED: ondansetron/PF 4mg/2ml inj IV ONE (20:50)
[2022-02-01] MEDS ORDERED: ringers solution, lactated 1000ml IV soln IV ONE (20:50)
[2022-02-01] MEDS ORDERED: DEXTROSE 15 GM of carb/4 tabs (each vial/BOTTLE has 4 tablets) PO PRN ×2 (20:55)
[2022-02-01] MEDS ORDERED: dextrose 50%-water 50ml dispensing syringe IV PRN ×2 (20:55)
[2022-02-01] MEDS ORDERED: glucagon, human recombinant 1mg kit SUBCUT PRN (20:55)
[2022-02-01] MEDS ORDERED: sodium phosphate inj. 15 MMOL in dextrose 5%-water 250 ML IV PRN (21:10)
[2022-02-01] MEDS ORDERED: HYDROcodone/acetaminophen 5mg/325mg tablet PO PRN (21:10)
[2022-02-01] MEDS ORDERED: Neutra Phos packet PO PRN (21:10)
[2022-02-01] MEDS ORDERED: potassium Cl 20 mEq SR tablet PO PRN ×2 (21:10)
[2022-02-01] MEDS ORDERED: magnesium 4gm in 100ml NS 100 ML IV PRN (21:10)
[2022-02-01] MEDS ORDERED: insulin regular, human U-100 3ml vial - multi-dose IV PRN (21:10)
[2022-02-01] MEDS ORDERED: magnesium hydroxide 30ml (MOM) UD suspension PO PRN (21:10)
[2022-02-01] MEDS: normal saline 1000ml 1,000 ML IV SCH ×2 (21:10→21:40)
[2022-02-01] MEDS ORDERED: normal saline 1000ml 1,000 ML IV SCH (21:10)
[2022-02-01] MEDS ORDERED: POTASSIUM BICARB 20meq eff tab 20 MEQ TABLET.EFF PO PRN ×2 (21:10)
[2022-02-01] MEDS ORDERED: potassium CL 10mEq/100ml bag 100 ML IV PRN (21:10)
[2022-02-01] MEDS ORDERED: magnesium 2GM in 50ml NS 50 ML IV PRN (21:10)
[2022-02-01] MEDS ORDERED: HYDROcodone/acetaminophen 10/325mg tab PO PRN (21:10)
[2022-02-01] MEDS ORDERED: ondansetron/PF 4mg/2ml inj IV PRN (21:10)
[2022-02-01] MEDS ORDERED: magnesium Cl slow-release 64mg tablet PO PRN (21:10)
[2022-02-01] MEDS ORDERED: potassium Cl 40MEQ/1/2NS 520ml 520 ML IV PRN ×2 (21:10)
[2022-02-01] MEDS ORDERED: mag hydrox/Alum hydrox/simeth 30ml oral suspension PO PRN (21:10)
[2022-02-01] MEDS ORDERED: sodium bicarbonate (8.4%) inj. 50 MEQ in dextrose 5% water 500ml 250 ML IV PRN (21:10)
[2022-02-01] MEDS ORDERED: acetaminophen 325mg tablet PO PRN (21:10)
[2022-02-01] MEDS ORDERED: sodium phosphate inj. 30 MMOL in dextrose 5%-water 250 ML IV PRN (21:10)
[2022-02-01] MEDS ORDERED: sodium bicarbonate (8.4%) inj. 100 MEQ in dextrose 5% water 500ml 500 ML IV PRN (21:10)
[2022-02-01 21:12] LABS: URINE AMPHETAMINE SCREEN NEGATIVE (Neg); URINE BARBITUATE SCREEN NEGATIVE (Neg); URINE BENZODIAZEPINES SCREEN NEGATIVE (Neg); URINE CANNABINOID SCREEN POSITIVE (Neg); URINE COCAINE SCREEN NEGATIVE (Neg); URINE METHADONE SCREEN NEGATIVE (Neg); URINE OPIATE SCREEN NEGATIVE (Neg); URINE PHENCYCLIDINE SCREEN NEGATIVE (Neg)
[2022-02-01 21:12] LABS: ABG HCO3 11.6 mmol/L (22.0-26.0); ABG OXYGEN SATURATION 97.4 % (94-97); ABG PO2 (T) 104.6 mmHg (75.0-100.0); ALLEN'S TEST POSITIVE; FCOHb 0.2 % (0.0-3.9); FMetHb 0.2 % (0.0-1.5); PATIENT TEMPERATURE 36.8; TOTAL HEMOGLOBIN 13.7 G/dl (14.0-18.0)
[2022-02-01 21:16] LABS: CLARITY,URINE CLEAR (Clear); COLOR,URINE YELLOW (Yellow); GLUCOSE, URINE >=1000 mg/dl (Neg); KETONES,URINE >=80 mg/dl (Neg); LEUKOCYTE ESTERASE ,URINE NEGATIVE (Neg); NITRITES, URINE NEGATIVE (Neg); OCCULT BLOOD,URINE NEGATIVE (Neg); PH,URINE 5.5 (4.8-8.0); PROTEIN,URINE NEGATIVE (Neg); UROBILINOGEN,URINE 0.2 E.U/dL (0.2-1.0)
[2022-02-01 21:21] LABS: UA COLLECTION TYPE URINAL
[2022-02-01 21:30] LABS: BACTERIA,URINE NONE SEEN /HPF (Neg); MUCUS STRANDS NONE SEEN /LPF (Neg); RBC,URINE NONE SEEN /HPF (0-2); SQUAMOUS EPITHELIAL CELL,UR FEW /LPF (FEW); WBC,URINE 0-4 /HPF (0-4)
--- NOTE | 2022-02-01 21:35 | NUR ---
Pt insulin drip started at 7 unit/hr with no 10 ml bolus as written in protocol per MD.
[2022-02-01 21:43] LABS: PHOSPHORUS 4.7 MG/DL (2.3-4.5)
[2022-02-01] MEDS: potassium CL 20mEq in D5-1/2NS 1,000 ML IV PRN (23:59)
[2022-02-02] LABS: ALANINE AMINOTRANSFERASE 25 U/L (12-78); ALBUMIN 3.2 G/DL (3.4-5.0); ALBUMIN/GLOBULIN RATIO 1.3 (1.1-1.5); ANION GAP 12 (8-16); ASPARTATE AMINO TRANSFERASE 13 U/L (10-37); BILIRUBIN,TOTAL 0.5 MG/DL (0.1-1.0); BLOOD UREA NITROGEN 17 MG/DL (7-18); BUN/CREATININE RATIO 19.1 (5.4-32.0); CALCIUM 8.4 MG/DL (8.5-10.1); CHLORIDE 106 MMOL/L (99-107); CREATININE 0.89 MG/DL (0.60-1.10); GLUCOSE 279 MG/DL (70-104); POTASSIUM 3.6 MMOL/L (3.5-5.1); SODIUM 139 MMOL/L (135-145); TOTAL CARBON DIOXIDE 21.2 MMOL/L (24-32); TOTAL PROTEIN 5.6 G/DL (6.4-8.2); eGFR > 90 ML/MIN
--- NOTE | 2022-02-02 00:03 | NUR ---
AGER ID: [phone] MESSAGE: Harley Manuel, ED room 11 had 2 L LR in ED r/t hyperglycemia and increased LA. Do you want to continue with the 2L NS? He has produced 1 L urine. Sheri DILL [id number]
--- NOTE | 2022-02-02 00:06 | NUR ---
2L bolus NS on EMAR is duplicate. Order Cancelled
[2022-02-02 00:15] LABS: ALKALINE PHOSPHATASE 35 IU/L (46-116)
[2022-02-02 00:45] VITALS: BP 128/70
--- NOTE | 2022-02-02 04:14 | NUR ---
3026 B Catrachito aMnuel 04:00 glucose is 68, he is on 7 units insulin /hr running with D5 1/2 NS on 250 ml/hr, notified for advise.
[2022-02-02] MEDS ORDERED: potassium CL 10mEq/100ml bag 100 ML IV PRN (05:15)
[2022-02-02] MEDS: potassium CL 20mEq in D5-1/2NS 1,000 ML IV PRN (05:24)
[2022-02-02] MEDS ORDERED: Insulin Reg/NS 100units/100mL 100 ML IV SCH (06:00)
[2022-02-02 07:00] VITALS: BP 109/72
[2022-02-02] MEDS ORDERED: levoTHYROXINE 88mcg tablet PO SCH (07:00)
[2022-02-02 07:16] LABS: BASOPHILS # (AUTO) 0.1 X10'3 (0-0.2); BASOPHILS % (AUTO) 0.5 % (0-1); EOSINOPHILS # (AUTO) 0.3 X10'3 (0-0.9); EOSINOPHILS % (AUTO) 1.8 % (0-6); HEMOGLOBIN 11.6 g/dl (14.0-17.9); LYMPHOCYTES # (AUTO) 2.9 X10'3 (1.1-4.8); MEAN CORPUSCULAR HEMOGLOBIN 28.2 PG (27.0-31.0); MEAN CORPUSCULAR HGB CONC 33.2 g/dL (33.0-36.5); MEAN CORPUSCULAR VOLUME 85.1 FL (78-98); MONOCYTES # (AUTO) 1.5 X10'3 (0-0.9); MONOCYTES % (AUTO) 9.1 % (2-12); NEUTROPHILS # (AUTO) 11.2 X10'3 (1.8-7.7); NEUTROPHILS % (AUTO) 70.6 % (42-75); PLATELET COUNT 219 X10'3 (140-440); RED BLOOD COUNT 4.11 X10'6 (4.70-6.10); RED CELL DISTRIBUTION WIDTH 13.4 % (11.5-14.5); WHITE BLOOD COUNT 15.9 X10'3 (4.5-11.0)
[2022-02-02 07:56] LABS: ALANINE AMINOTRANSFERASE 23 U/L (12-78); ALBUMIN 3.1 G/DL (3.4-5.0); ALBUMIN/GLOBULIN RATIO 1.4 (1.1-1.5); ALKALINE PHOSPHATASE 34 IU/L (46-116); ANION GAP 12 (8-16); ASPARTATE AMINO TRANSFERASE 14 U/L (10-37); BILIRUBIN,TOTAL 0.6 MG/DL (0.1-1.0); BLOOD UREA NITROGEN 11 MG/DL (7-18); BUN/CREATININE RATIO 13.3 (5.4-32.0); CALCIUM 8.1 MG/DL (8.5-10.1); CHLORIDE 106 MMOL/L (99-107); CREATININE 0.83 MG/DL (0.60-1.10); GLUCOSE 285 MG/DL (70-104); MAGNESIUM 1.7 MG/DL (1.5-2.4); PHOSPHORUS 2.7 MG/DL (2.3-4.5); POTASSIUM 4.5 MMOL/L (3.5-5.1); SODIUM 142 MMOL/L (135-145); TOTAL CARBON DIOXIDE 23.9 MMOL/L (24-32); TOTAL PROTEIN 5.3 G/DL (6.4-8.2); eGFR > 90 ML/MIN
[2022-02-02] MEDS ORDERED: docusate sod 100mg capsule PO SCH (08:00)
[2022-02-02] MEDS ORDERED: insulin glargine (Lantus) pen - multi-dose SQ SCH ×2 (08:00→21:00)
[2022-02-02] MEDS ORDERED: predniSONE 5mg tablet PO SCH (08:00)
[2022-02-02] MEDS ORDERED: PHOSPHORUS PO SCH (08:00)
[2022-02-02] MEDS ORDERED: fludrocortisone acetate 0.1mg tablet PO SCH (08:00)
[2022-02-02] MEDS ORDERED: K and/or MAG REPLACEMENT MC SCH ×2 (08:00)
[2022-02-02] MEDS ORDERED: DEXTROSE 15 GM of carb/4 tabs (each vial/BOTTLE has 4 tablets) PO PRN ×2 (08:15)
[2022-02-02] MEDS ORDERED: glucagon, human recombinant 1mg kit SUBCUT PRN (08:15)
[2022-02-02] MEDS ORDERED: MESSAGE TO PHARMACY PO ONE (08:15)
[2022-02-02] MEDS ORDERED: dextrose 50%-water 50ml dispensing syringe IV PRN ×2 (08:15)
[2022-02-02] MEDS ORDERED: insulin glargine (Lantus) pen - multi-dose SQ ONE (08:25)
[2022-02-02] MEDS: insulin Lispro (HumaLOG) vial - multi-dose SQ SCH ×2 (08:38→13:11)
--- NOTE | 2022-02-02 10:00 | NUR ---
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 A1C 9.5% currently down from 10.7% 08/06/21 per EMR. 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 Pt seen by RD at bedside; declines DM ed at this time reports no questions/concerns since seen by RD for DM ed recent prior admit here 01/07. Pt reports no issues w/ meds/refills and takes meds per rx. Pt appears WD/WN and noted prior admit 01/07 reported UBW ~110 pounds which is current standing scale wt; lacks minimum malnutrition criteria at this time. Pending initial meal intake documentation on carb controlled diet. [facility] 02/01. Will monitor for PO trends and further nutrition intervention needs this admit. Rec: 1. continue carb controlled diet; encourage PO 2. monitor for PO trends and ONS needs 3. routine bowel care 4. weekly wts Addendum: 02/02/22 at [address] Amended: Links added.
[2022-02-02 11:00] VITALS: BP 116/61
[2022-02-02 12:48] LABS: ALANINE AMINOTRANSFERASE 23 U/L (12-78); ALBUMIN 3.3 G/DL (3.4-5.0); ALBUMIN/GLOBULIN RATIO 1.3 (1.1-1.5); ALKALINE PHOSPHATASE 41 IU/L (46-116); ANION GAP 6 (8-16); ASPARTATE AMINO TRANSFERASE 12 U/L (10-37); BILIRUBIN,TOTAL 0.7 MG/DL (0.1-1.0); BLOOD UREA NITROGEN 11 MG/DL (7-18); BUN/CREATININE RATIO 15.3 (5.4-32.0); CALCIUM 8.5 MG/DL (8.5-10.1); CHLORIDE 106 MMOL/L (99-107); CREATININE 0.72 MG/DL (0.60-1.10); GLUCOSE 143 MG/DL (70-104); POTASSIUM 3.9 MMOL/L (3.5-5.1); SODIUM 139 MMOL/L (135-145); TOTAL CARBON DIOXIDE 27.2 MMOL/L (24-32); TOTAL PROTEIN 5.8 G/DL (6.4-8.2); eGFR > 90 ML/MIN
--- NOTE | 2022-02-02 13:16 | NUR ---
Page Sent promotional table spacer PAGER ID: [phone] MESSAGE: [phone] Mar. Pt 1200 labs available in [employer]. He states he is ready to go home. [email or web address]
--- NOTE | 2022-02-02 15:10 | NUR ---
Patient DC to home and was picked up by his . PIV was removed with cannula intact. All belongings went with patient. DC instructions and warning s/s, and diabetes education was reviewed with the patient and he verbalized understanding. Patient was alert, oriented, and appropriate at time of DC. All questions were answered to patient's satisfaction. Patient was walked to lobby.
[2022-02-02] MEDS ORDERED: enoxaparin 40mg/0.4ml syringe SQ SCH (20:00)
== END 2022-02-02 14:42 | disposition home or self-care (01) | DRG 420 ==
LOC: ER 19:40 → ED HOLD 21:15 → PCU 3S 02-02 00:36
PROVIDERS: ADMIT Internal Medicine; ATTEND Family Medicine
DX: E10.10 Type 1 diabetes mellitus with ketoacidosis without coma (principal); N17.0 Acute kidney failure with tubular necrosis; D72.829 Elevated white blood cell count, unspecified; E27.1 Primary adrenocortical insufficiency; E03.9 Hypothyroidism, unspecified; T38.0X5A Adverse effect of glucocorticoids and synthetic analogues, initial encounter; Y92.89 Other specified places as the place of occurrence of the external cause; Z88.0 Allergy status to penicillin; Z82.49 Family history of ischemic heart disease and other diseases of the circulatory system; Z79.899 Other long term (current) drug therapy
CPT/HCPCS: 36415; 36600; 71045; 80053; 80305; 81001; 82803; 82948; 83605; 83735; 84100; 84145; 84443; 85018; 85025; 87040; 87081; 96374; 99285; G0378; J1815; J2405; J3480; J3490; J7030; J7120; J7512

== ENCOUNTER 2022-12-09 13:31 | Emergency (ER) | payer MEDICAID ==
[~2022-12-09] VITALS: Ht 162.6 cm; Wt 45.8 kg
[~2022-12-09 13:31] MED LIST changes: +METO-292 PO; -NEUPHOSK PO; -ONDA4TAB12 PO; -PROM12.574 RC
[2022-12-09 13:54] LABS: BASOPHILS # (AUTO) 0.1 X10'3 (0-0.2); BASOPHILS % (AUTO) 0.4 % (0-1); EOSINOPHILS # (AUTO) 0.5 X10'3 (0-0.9); EOSINOPHILS % (AUTO) 2.8 % (0-6); HEMATOCRIT 48.7 % (42.0-52.0); HEMOGLOBIN 16.3 g/dl (14.0-17.9); LYMPHOCYTES # (AUTO) 2.1 X10'3 (1.1-4.8); LYMPHOCYTES % (AUTO) 11.4 % (21-51); MEAN CORPUSCULAR HEMOGLOBIN 28.9 PG (27.0-31.0); MEAN CORPUSCULAR HGB CONC 33.5 g/dL (33.0-36.5); MEAN CORPUSCULAR VOLUME 86.2 FL (78-98); MEAN PLATELET VOLUME 8.2 FL (7.4-10.4); MONOCYTES # (AUTO) 0.9 X10'3 (0-0.9); MONOCYTES % (AUTO) 5.1 % (2-12); NEUTROPHILS # (AUTO) 14.8 X10'3 (1.8-7.7); NEUTROPHILS % (AUTO) 80.3 % (42-75); PLATELET COUNT 261 X10'3 (140-440); RED BLOOD COUNT 5.65 X10'6 (4.70-6.10); WHITE BLOOD COUNT 18.4 X10'3 (4.5-11.0)
[2022-12-09] MEDS ORDERED: normal saline 1000ml 1,000 ML IV STA (14:04)
[2022-12-09 14:09] LABS: ALANINE AMINOTRANSFERASE 21 U/L (12-78); ALBUMIN 4.1 G/DL (3.4-5.0); ALBUMIN/GLOBULIN RATIO 1.2 (1.1-1.5); ALKALINE PHOSPHATASE 61 IU/L (46-116); ANION GAP 9 (8-16); ASPARTATE AMINO TRANSFERASE 20 U/L (10-37); BILIRUBIN,TOTAL 0.5 MG/DL (0.1-1.0); BLOOD UREA NITROGEN 11 MG/DL (7-18); BUN/CREATININE RATIO 13.9 (10.0-20.0); CALCIUM 9.1 MG/DL (8.5-10.1); CHLORIDE 99 MMOL/L (99-107); CREATININE 0.79 MG/DL (0.60-1.10); GLUCOSE 263 MG/DL (70-104); LIPASE 710 U/L (73-393); POTASSIUM 4.6 MMOL/L (3.5-5.1); SODIUM 136 MMOL/L (135-145); TOTAL CARBON DIOXIDE 28.3 MMOL/L (24-32); TOTAL PROTEIN 7.6 G/DL (6.4-8.2); eGFR > 90 ML/MIN
[2022-12-09 14:09] LABS: CLARITY,URINE CLEAR (Clear); COLOR,URINE YELLOW (Yellow); GLUCOSE, URINE 250 mg/dl (Neg); KETONES,URINE 15 mg/dl (Neg); LEUKOCYTE ESTERASE ,URINE NEGATIVE (Neg); NITRITES, URINE NEGATIVE (Neg); OCCULT BLOOD,URINE NEGATIVE (Neg); PROTEIN,URINE NEGATIVE (Neg); UA COLLECTION TYPE CLN CATCH MIDSTREAM; UROBILINOGEN,URINE 0.2 E.U/dL (0.2-1.0)
[2022-12-09 15:06] VITALS: BP 117/79
== END 2022-12-09 15:15 | disposition home or self-care (01) ==
LOC: ER 13:32
DX: E11.65 Type 2 diabetes mellitus with hyperglycemia (principal); E86.0 Dehydration; E03.9 Hypothyroidism, unspecified; Z88.0 Allergy status to penicillin; Z79.899 Other long term (current) drug therapy; Z79.1 Long term (current) use of non-steroidal anti-inflammatories (NSAID); Z79.2 Long term (current) use of antibiotics
CPT/HCPCS: 36415; 80053; 81003; 82948; 83690; 85025; 99283; J7030

== ENCOUNTER 2023-01-22 11:59 | Inpatient (IN) | payer MEDICAID ==
[~2023-01-22] VITALS: Ht 162.6 cm; Wt 54.0 kg
[2023-01-22] MEDS ORDERED: proCHLORperazine 10 MG/2 ml inj IV ONE (12:35)
[2023-01-22 13:03] LABS: BASOPHILS # (AUTO) 0.1 X10'3 (0-0.2); BASOPHILS % (AUTO) 0.6 % (0-1); EOSINOPHILS # (AUTO) 0.9 X10'3 (0-0.9); EOSINOPHILS % (AUTO) 4.2 % (0-6); HEMATOCRIT 49.4 % (42.0-52.0); LYMPHOCYTES # (AUTO) 3.7 X10'3 (1.1-4.8); LYMPHOCYTES % (AUTO) 17.2 % (21-51); MEAN CORPUSCULAR HEMOGLOBIN 28.5 PG (27.0-31.0); MEAN CORPUSCULAR HGB CONC 32.4 g/dL (33.0-36.5); MEAN CORPUSCULAR VOLUME 88.1 FL (78-98); MEAN PLATELET VOLUME 9.7 FL (7.4-10.4); MONOCYTES # (AUTO) 1.1 X10'3 (0-0.9); MONOCYTES % (AUTO) 5.3 % (2-12); NEUTROPHILS # (AUTO) 15.5 X10'3 (1.8-7.7); NEUTROPHILS % (AUTO) 72.7 % (42-75); PLATELET COUNT 286 X10'3 (140-440); RED BLOOD COUNT 5.61 X10'6 (4.70-6.10); RED CELL DISTRIBUTION WIDTH 13.2 % (11.5-14.5); WHITE BLOOD COUNT 21.3 X10'3 (4.5-11.0)
[2023-01-22 13:07] LABS: ALANINE AMINOTRANSFERASE 26 U/L (12-78); ALBUMIN 4.2 G/DL (3.4-5.0); ALBUMIN/GLOBULIN RATIO 1.3 (1.1-1.5); ALKALINE PHOSPHATASE 64 IU/L (46-116); ANION GAP 24 (8-16); ASPARTATE AMINO TRANSFERASE 15 U/L (10-37); BILIRUBIN,TOTAL 0.8 MG/DL (0.1-1.0); BLOOD UREA NITROGEN 22 MG/DL (7-18); BUN/CREATININE RATIO 17.5 (10.0-20.0); CALCIUM 9.4 MG/DL (8.5-10.1); CHLORIDE 93 MMOL/L (99-107); CREATININE 1.26 MG/DL (0.60-1.10); LIPASE 862 U/L (73-393); POTASSIUM 4.6 MMOL/L (3.5-5.1); SODIUM 134 MMOL/L (135-145); TOTAL PROTEIN 7.5 G/DL (6.4-8.2); eGFR 64 ML/MIN
[2023-01-22 13:16] LABS: GLUCOSE 485 MG/DL (70-104)
[2023-01-22 13:51] LABS: PLATELET ESTIMATE NORMAL; TOTAL CELLS COUNTED 100; TOXIC GRANULATION 1+
[2023-01-22 14:23] LABS: CLARITY,URINE CLEAR (Clear); COLOR,URINE STRAW (Yellow); GLUCOSE, URINE >=1000 mg/dl (Neg); KETONES,URINE >=80 mg/dl (Neg); LEUKOCYTE ESTERASE ,URINE NEGATIVE (Neg); NITRITES, URINE NEGATIVE (Neg); OCCULT BLOOD,URINE NEGATIVE (Neg); PH,URINE 5.5 (4.8-8.0); PROTEIN,URINE NEGATIVE (Neg); UROBILINOGEN,URINE 0.2 E.U/dL (0.2-1.0)
[2023-01-22 14:24] LABS: UA COLLECTION TYPE VOIDED
[2023-01-22 14:30] LABS: SQUAMOUS EPITHELIAL CELL,UR FEW /LPF (FEW)
[2023-01-22 14:34] LABS: RBC,URINE NONE SEEN /HPF (0-2); WBC,URINE NONE SEEN /HPF (0-4)
[2023-01-22 14:37] LABS: TRANSITIONAL EPI CELLS,URINE FEW /HPF
[2023-01-22 14:38] LABS: BACTERIA,URINE NONE SEEN /HPF (Neg)
[2023-01-22] MEDS ORDERED: Insulin Reg/NS 100units/100mL 100 ML IV PRN (15:05)
[2023-01-22] MEDS ORDERED: insulin regular, human U-100 3ml vial - multi-dose IV ONE (15:05)
[2023-01-22 15:39] LABS: ABG BASE EXCESS -13.4 mmol/L (-2.0-2.0); ABG HCO3 10.2 mmol/L (22.0-26.0); ABG OXYGEN SATURATION 98.2 % (94-97); ABG PCO2 (T) 20.7 mmHg (35.0-48.0); ABG PO2 (T) 120.4 mmHg (75.0-100.0); ALLEN'S TEST POSITIVE; FCOHb 0.8 % (0.0-3.9); FMetHb 0.4 % (0.0-1.5)
[2023-01-22] MEDS ORDERED: potassium Cl 20 mEq SR tablet PO PRN ×4 (16:30)
[2023-01-22] MEDS: normal saline 1000ml 1,000 ML IV SCH ×4 (16:30→20:30)
[2023-01-22] MEDS ORDERED: sodium bicarbonate (8.4%) inj. 100 MEQ in dextrose 5% water 500ml 500 ML IV PRN (16:30)
[2023-01-22] MEDS ORDERED: metoclopramide 5 mg/ml inj IV PRN (16:30)
[2023-01-22] MEDS ORDERED: ondansetron/PF 4mg/2ml inj IV PRN (16:30)
[2023-01-22] MEDS ORDERED: acetaminophen 325mg tablet PO PRN ×2 (16:30)
[2023-01-22] MEDS ORDERED: sodium phosphate inj. 15 MMOL in dextrose 5%-water 250 ML IV PRN (16:30)
[2023-01-22] MEDS ORDERED: magnesium 4gm in 100ml NS 100 ML IV PRN (16:30)
[2023-01-22] MEDS ORDERED: morphine 2 MG/ML inj. syringe IV PRN ×2 (16:30)
[2023-01-22] MEDS ORDERED: Insulin Reg/NS 100units/100mL 100 ML IV SCH (16:30)
[2023-01-22] MEDS ORDERED: insulin regular, human U-100 3ml vial - multi-dose IV PRN (16:30)
[2023-01-22] MEDS ORDERED: sodium phosphate inj. 30 MMOL in dextrose 5%-water 250 ML IV PRN (16:30)
[2023-01-22] MEDS ORDERED: ondansetron 4mg rapidly disintigrating tab PO PRN (16:30)
[2023-01-22] MEDS ORDERED: potassium Cl 40MEQ/1/2NS 520ml 520 ML IV PRN ×3 (16:30)
[2023-01-22] MEDS ORDERED: magnesium 2GM in 50ml NS 50 ML IV PRN (16:30)
[2023-01-22] MEDS ORDERED: magnesium Cl slow-release 64mg tablet PO PRN (16:30)
[2023-01-22] MEDS ORDERED: sodium bicarbonate (8.4%) inj. 50 MEQ in dextrose 5% water 500ml 250 ML IV PRN (16:30)
[2023-01-22] MEDS ORDERED: PRE5T PO (17:06)
[2023-01-22] MEDS ORDERED: PRE1T PO (17:07)
[2023-01-22] MEDS: potassium CL 20mEq in D5-1/2NS 1,000 ML IV PRN (18:26)
[2023-01-22 18:35] LABS: HEMOGLOBIN A1C 9.6 % (4.5-6.2)
[2023-01-22 18:43] LABS: ANION GAP 20 (8-16); BLOOD UREA NITROGEN 25 MG/DL (7-18); BUN/CREATININE RATIO 20.2 (10.0-20.0); CALCIUM 8.8 MG/DL (8.5-10.1); CHLORIDE 100 MMOL/L (99-107); CHOL/HDL RATIO 3.3 (0.00-4.99); CHOLESTEROL 153 MG/DL (0-200); CREATININE 1.24 MG/DL (0.60-1.10); GLUCOSE 320 MG/DL (70-104); HDL CHOLESTEROL 46 MG/DL (35-60); LDL CHOLESTEROL 96 MG/DL (50-100); LIPASE 289 U/L (73-393); POTASSIUM 3.6 MMOL/L (3.5-5.1); SODIUM 138 MMOL/L (135-145); TRIGLYCERIDES 39 MG/DL (20-135); eGFR 65 ML/MIN
--- NOTE | 2023-01-22 19:15 | NUR ---
Patient in room PCU 3012. I have received report from ED RN and had the opportunity to ask questions and assume patient care.
[2023-01-22 19:30] VITALS: BP 106/77
[2023-01-22] MEDS ORDERED: enoxaparin 40mg/0.4ml syringe SQ SCH (20:00)
[2023-01-22] MEDS: K and/or MAG REPLACEMENT MC SCH (20:00)
[2023-01-22 20:27] LABS: ALBUMIN 3.8 G/DL (3.4-5.0); ANION GAP 11 (8-16); BLOOD UREA NITROGEN 22 MG/DL (7-18); BUN/CREATININE RATIO 23.2 (10.0-20.0); CALCIUM 8.6 MG/DL (8.5-10.1); CHLORIDE 103 MMOL/L (99-107); CREATININE 0.95 MG/DL (0.60-1.10); GLUCOSE 171 MG/DL (70-104); PHOSPHORUS 2.2 MG/DL (2.3-4.5); POTASSIUM 3.8 MMOL/L (3.5-5.1); SODIUM 135 MMOL/L (135-145); TOTAL CARBON DIOXIDE 21.2 MMOL/L (24-32); eGFR 89 ML/MIN
[2023-01-22 22:00] VITALS: BP 106/87
[2023-01-23] MEDS: normal saline 1000ml 1,000 ML IV SCH ×3 (00:30→08:30)
[2023-01-23] MEDS: potassium CL 20mEq in D5-1/2NS 1,000 ML IV PRN (01:05)
[2023-01-23 02:00] VITALS: BP 142/92
--- NOTE | 2023-01-23 03:00 | NUR ---
PT HAD BLOOD SUGAR LEVEL AT 53, CALLED DR. BERMUDEZ AND RECEIVED THE ORDER TO DECREASE THE INSULIN GTT TO 2 UNIT/HR FROM 5 UNIT. GAVE PT 50% DEXTROSE IV INJECTION AND WILL CHECK THE BG LEVEL IN 15 MINUTES
[2023-01-23] MEDS ORDERED: Insulin Reg/NS 100units/100mL 100 ML IV PRN (03:05)
[2023-01-23] MEDS ORDERED: dextrose 50%-water 50ml dispensing syringe IV PRN ×4 (03:05→08:30)
[2023-01-23] MEDS ORDERED: DEXTROSE 15 GM of carb/4 tabs (each vial/BOTTLE has 4 tablets) PO PRN ×4 (03:05→08:30)
[2023-01-23] MEDS ORDERED: glucagon, human recombinant 1mg kit SUBCUT PRN ×2 (03:05→08:30)
[2023-01-23 03:32] LABS: ALBUMIN 3.5 G/DL (3.4-5.0); ANION GAP 7 (8-16); BLOOD UREA NITROGEN 14 MG/DL (7-18); BUN/CREATININE RATIO 17.3 (10.0-20.0); CALCIUM 8.1 MG/DL (8.5-10.1); CHLORIDE 107 MMOL/L (99-107); CREATININE 0.81 MG/DL (0.60-1.10); GLUCOSE 51 MG/DL (70-104); PHOSPHORUS 1.8 MG/DL (2.3-4.5); POTASSIUM 3.2 MMOL/L (3.5-5.1); SODIUM 138 MMOL/L (135-145); TOTAL CARBON DIOXIDE 24.1 MMOL/L (24-32); eGFR > 90 ML/MIN
[2023-01-23 05:21] LABS: BASOPHILS # (AUTO) 0.1 X10'3 (0-0.2); BASOPHILS % (AUTO) 0.8 % (0-1); EOSINOPHILS # (AUTO) 0.4 X10'3 (0-0.9); EOSINOPHILS % (AUTO) 2.4 % (0-6); HEMATOCRIT 42.3 % (42.0-52.0); LYMPHOCYTES % (AUTO) 23.2 % (21-51); MEAN CORPUSCULAR HEMOGLOBIN 28.5 PG (27.0-31.0); MEAN CORPUSCULAR HGB CONC 33.1 g/dL (33.0-36.5); MEAN CORPUSCULAR VOLUME 86.1 FL (78-98); MEAN PLATELET VOLUME 9.2 FL (7.4-10.4); MONOCYTES # (AUTO) 1.7 X10'3 (0-0.9); MONOCYTES % (AUTO) 9.8 % (2-12); NEUTROPHILS # (AUTO) 11.1 X10'3 (1.8-7.7); NEUTROPHILS % (AUTO) 63.8 % (42-75); PLATELET COUNT 226 X10'3 (140-440); RED BLOOD COUNT 4.91 X10'6 (4.70-6.10); WHITE BLOOD COUNT 17.4 X10'3 (4.5-11.0)
[2023-01-23 05:27] LABS: MAGNESIUM 1.5 MG/DL (1.5-2.4)
[2023-01-23 07:00] VITALS: BP 110/71
[2023-01-23] MEDS ORDERED: levoTHYROXINE 88mcg tablet PO SCH (07:00)
[2023-01-23 07:10] LABS: BASOPHILS # (AUTO) 0.1 X10'3 (0-0.2); BASOPHILS % (AUTO) 0.7 % (0-1); EOSINOPHILS # (AUTO) 0.5 X10'3 (0-0.9); EOSINOPHILS % (AUTO) 3.6 % (0-6); HEMATOCRIT 38.7 % (42.0-52.0); HEMOGLOBIN 12.7 g/dl (14.0-17.9); LYMPHOCYTES # (AUTO) 3.5 X10'3 (1.1-4.8); MEAN CORPUSCULAR HGB CONC 32.9 g/dL (33.0-36.5); MEAN CORPUSCULAR VOLUME 85.3 FL (78-98); MEAN PLATELET VOLUME 8.2 FL (7.4-10.4); MONOCYTES # (AUTO) 1.6 X10'3 (0-0.9); MONOCYTES % (AUTO) 10.3 % (2-12); NEUTROPHILS # (AUTO) 9.4 X10'3 (1.8-7.7); NEUTROPHILS % (AUTO) 62.4 % (42-75); PLATELET COUNT 223 X10'3 (140-440); RED BLOOD COUNT 4.53 X10'6 (4.70-6.10); RED CELL DISTRIBUTION WIDTH 12.9 % (11.5-14.5); WHITE BLOOD COUNT 15.1 X10'3 (4.5-11.0)
[2023-01-23 07:25] LABS: ALANINE AMINOTRANSFERASE 20 U/L (12-78); ALBUMIN/GLOBULIN RATIO 1.3 (1.1-1.5); ALKALINE PHOSPHATASE 43 IU/L (46-116); ANION GAP 11 (8-16); ASPARTATE AMINO TRANSFERASE 11 U/L (10-37); BILIRUBIN,TOTAL 0.5 MG/DL (0.1-1.0); BLOOD UREA NITROGEN 11 MG/DL (7-18); BUN/CREATININE RATIO 15.3 (10.0-20.0); CALCIUM 7.9 MG/DL (8.5-10.1); CHLORIDE 107 MMOL/L (99-107); CREATININE 0.72 MG/DL (0.60-1.10); GLUCOSE 80 MG/DL (70-104); MAGNESIUM 1.6 MG/DL (1.5-2.4); PHOSPHORUS 1.6 MG/DL (2.3-4.5); POTASSIUM 3.5 MMOL/L (3.5-5.1); SODIUM 140 MMOL/L (135-145); TOTAL CARBON DIOXIDE 22.4 MMOL/L (24-32); TOTAL PROTEIN 5.4 G/DL (6.4-8.2); eGFR > 90 ML/MIN
[2023-01-23] MEDS ORDERED: MESSAGE TO PHARMACY PO ONE (07:30)
[2023-01-23] MEDS: K and/or MAG REPLACEMENT MC SCH (08:00)
[2023-01-23] MEDS ORDERED: fludrocortisone acetate 0.1mg tablet PO SCH (08:00)
[2023-01-23] MEDS ORDERED: predniSONE 1 mg tablet PO SCH (08:00)
[2023-01-23] MEDS: Neutra Phos packet PO PRN ×2 (08:10→10:00)
--- NOTE | 2023-01-23 09:00 | NUR ---
Per Dr Bundy ok to turn off insulin gtt. Sub Q given . Dr Bundy does not want to give lantus at this time.
[2023-01-23] MEDS: insulin Lispro (HumaLOG) vial - multi-dose SQ SCH ×2 (09:05→13:13)
[2023-01-23 11:00] VITALS: BP 119/72
[2023-01-23 12:24] LABS: ALBUMIN 3.2 G/DL (3.4-5.0); ANION GAP 10 (8-16); BLOOD UREA NITROGEN 8 MG/DL (7-18); BUN/CREATININE RATIO 10.8 (10.0-20.0); CALCIUM 8.4 MG/DL (8.5-10.1); CHLORIDE 106 MMOL/L (99-107); CREATININE 0.74 MG/DL (0.60-1.10); GLUCOSE 165 MG/DL (70-104); MAGNESIUM 1.6 MG/DL (1.5-2.4); PHOSPHORUS 2.5 MG/DL (2.3-4.5); SODIUM 140 MMOL/L (135-145); TOTAL CARBON DIOXIDE 24.5 MMOL/L (24-32); eGFR > 90 ML/MIN
[2023-01-23] MEDS ORDERED: INSU100I31 SQ (12:41)
--- NOTE | 2023-01-23 14:19 | NUR ---
Patient is DC to home and was accompanied by his father. PIV x2 were DC with cannulas intact. No new RX. DC instructions and warning s/s were reviewed with patient and father and both verbalized understanding. Patient did not want to be wheeled to lobby and walked out with his father. Patient was alert, oriented, and appropriated at time of DC. All belongings went with patient.
[2023-01-23] MEDS ORDERED: CLIN-91 PO (17:06)
[2023-01-23] MEDS ORDERED: insulin glargine (Lantus) pen - multi-dose SQ SCH (21:00)
== END 2023-01-23 13:26 | disposition home or self-care (01) | DRG 420 ==
LOC: ER 12:00 → ED HOLD 16:35 → PCU 3S 19:15
PROVIDERS: ADMIT Internal Medicine; ATTEND Internal Medicine
DX: E10.10 Type 1 diabetes mellitus with ketoacidosis without coma (principal); E10.22 Type 1 diabetes mellitus with diabetic chronic kidney disease; E27.1 Primary adrenocortical insufficiency; D72.829 Elevated white blood cell count, unspecified; E03.9 Hypothyroidism, unspecified; E86.0 Dehydration; N18.30 Chronic kidney disease, stage 3 unspecified; Z79.4 Long term (current) use of insulin; Z82.49 Family history of ischemic heart disease and other diseases of the circulatory system; Z88.0 Allergy status to penicillin; Z79.899 Other long term (current) drug therapy
CPT/HCPCS: 36415; 36600; 71045; 80048; 80053; 80061; 81001; 82803; 82948; 83036; 83605; 83690; 83735; 84100; 84145; 84443; 84484; 85007; 85018; 85025; 87040; 87081; 99285; G0378; J0780; J1650; J1815; J3480; J3490; J7030; J7040; J7512

== ENCOUNTER 2023-02-18 09:04 | Inpatient (IN) | payer MEDICAID ==
[2023-02-18] VITALS (7 sets, daily range): BP systolic 102–123; BP diastolic 58–79
[~2023-02-18] VITALS: Ht 162.6 cm; Wt 50.0 kg
[~2023-02-18 09:04] MED LIST changes: -INSU100V43 SQ; +INSU100V49 SQ; -METO-292 PO; +PRE1T PO; -PRED1TAB PO
[2023-02-18] MEDS ORDERED: metoclopramide 5 mg/ml inj IV ONE (09:10)
[2023-02-18] MEDS ORDERED: hydrocortisone sod succ/PF 250mg/2ml inj. IV ONE (09:10)
[2023-02-18] MEDS ORDERED: famotidine/PF 10 mg/ml inj IV ONE (09:10)
[2023-02-18] MEDS: normal saline 1000ml 1,000 ML IV SCH ×5 (09:10→17:41)
[2023-02-18] MEDS ORDERED: Insulin Reg/NS 100units/100mL 100 ML IV SCH ×2 (09:10→12:30)
[2023-02-18] MEDS ORDERED: insulin regular, human U-100 3ml vial - multi-dose IV PRN ×2 (09:10→12:30)
[2023-02-18] MEDS ORDERED: potassium CL 20mEq in D5-1/2NS 1,000 ML IV PRN ×2 (09:10→12:30)
[2023-02-18] MEDS ORDERED: LORazepam 2 mg/ml vial IV ONE (09:10)
[2023-02-18] MEDS ORDERED: hydrocortisone sod succ/PF 100mg/2ml inj. IV ONE (09:35)
[2023-02-18 09:47] LABS: BASOPHILS # (AUTO) 0.1 X10'3 (0-0.2); BASOPHILS % (AUTO) 1.1 % (0-1); EOSINOPHILS # (AUTO) 0.5 X10'3 (0-0.9); HEMATOCRIT 47.8 % (42.0-52.0); HEMOGLOBIN 15.7 g/dl (14.0-17.9); LYMPHOCYTES # (AUTO) 3.8 X10'3 (1.1-4.8); LYMPHOCYTES % (AUTO) 37.3 % (21-51); MEAN CORPUSCULAR HEMOGLOBIN 28.8 PG (27.0-31.0); MEAN CORPUSCULAR VOLUME 87.5 FL (78-98); MONOCYTES # (AUTO) 0.8 X10'3 (0-0.9); MONOCYTES % (AUTO) 7.4 % (2-12); NEUTROPHILS % (AUTO) 49.2 % (42-75); PLATELET COUNT 261 X10'3 (140-440); RED BLOOD COUNT 5.46 X10'6 (4.70-6.10); RED CELL DISTRIBUTION WIDTH 13.4 % (11.5-14.5); WHITE BLOOD COUNT 10.2 X10'3 (4.5-11.0)
[2023-02-18 10:02] LABS: LIPASE 402 U/L (73-393); PHOSPHORUS 2.8 MG/DL (2.3-4.5)
[2023-02-18 10:09] LABS: ABG BASE EXCESS -12.3 mmol/L (-2.0-2.0); ABG HCO3 12.9 mmol/L (22.0-26.0); ABG OXYGEN SATURATION 94.3 % (94-97); ABG PCO2 (T) 26.8 mmHg (35.0-48.0); ABG PO2 (T) 75.1 mmHg (75.0-100.0); FCOHb 0.7 % (0.0-3.9); FLOW 0 L/min; FMetHb 0.4 % (0.0-1.5); FO2Hb 93.3 % (94-97); PATIENT TEMPERATURE 36.1; TOTAL HEMOGLOBIN 12.7 G/dl (14.0-17.9)
--- NOTE | 2023-02-18 10:37 | NUR ---
PT LACTIC IS 4.1. RN NOTIFIED FAITH DILL AND RAMANDEEP.
[2023-02-18 10:44] LABS: ALANINE AMINOTRANSFERASE 23 U/L (12-78); ALBUMIN 4.3 G/DL (3.4-5.0); ALBUMIN/GLOBULIN RATIO 1.3 (1.1-1.5); ALKALINE PHOSPHATASE 72 IU/L (46-116); ANION GAP 25 (8-16); ASPARTATE AMINO TRANSFERASE 14 U/L (10-37); BILIRUBIN,TOTAL 0.8 MG/DL (0.1-1.0); BLOOD UREA NITROGEN 21 MG/DL (7-18); BUN/CREATININE RATIO 16.4 (10.0-20.0); CHLORIDE 93 MMOL/L (99-107); CREATININE 1.28 MG/DL (0.60-1.10); POTASSIUM 4.2 MMOL/L (3.5-5.1); SODIUM 134 MMOL/L (135-145); TOTAL CARBON DIOXIDE 16.2 MMOL/L (24-32); TOTAL PROTEIN 7.5 G/DL (6.4-8.2); eGFR 63 ML/MIN
[2023-02-18 10:54] LABS: GLUCOSE 640 MG/DL (70-104)
[2023-02-18] MEDS ORDERED: sodium bicarbonate (8.4%) inj. 100 MEQ in dextrose 5% water 500ml 500 ML IV PRN (12:30)
[2023-02-18] MEDS ORDERED: ondansetron 4mg rapidly disintigrating tab PO PRN (12:30)
[2023-02-18] MEDS ORDERED: potassium Cl 20 mEq SR tablet PO PRN ×4 (12:30)
[2023-02-18] MEDS ORDERED: ondansetron/PF 4mg/2ml inj IV PRN (12:30)
[2023-02-18] MEDS ORDERED: sodium phosphate inj. 15 MMOL in dextrose 5%-water 250 ML IV PRN (12:30)
[2023-02-18] MEDS ORDERED: acetaminophen 325mg tablet PO PRN (12:30)
[2023-02-18] MEDS ORDERED: HYDROmorphone inj. 0.5 MG/0.5 ML DISP.SYRIN IV PRN (12:30)
[2023-02-18] MEDS ORDERED: mag hydrox/Alum hydrox/simeth 30ml oral suspension PO PRN (12:30)
[2023-02-18] MEDS ORDERED: sodium phosphate inj. 30 MMOL in dextrose 5%-water 250 ML IV PRN (12:30)
[2023-02-18] MEDS ORDERED: magnesium Cl slow-release 64mg tablet PO PRN (12:30)
[2023-02-18] MEDS ORDERED: magnesium hydroxide 30ml (MOM) UD suspension PO PRN (12:30)
[2023-02-18] MEDS ORDERED: magnesium 2GM in 50ml NS 50 ML IV PRN (12:30)
[2023-02-18] MEDS ORDERED: magnesium 4gm in 100ml NS 100 ML IV PRN (12:30)
[2023-02-18] MEDS ORDERED: sodium bicarbonate (8.4%) inj. 50 MEQ in dextrose 5% water 500ml 250 ML IV PRN (12:30)
[2023-02-18] MEDS ORDERED: normal saline 1000ml 1,000 ML IV SCH (12:30)
[2023-02-18] MEDS ORDERED: Neutra Phos packet PO PRN (12:30)
[2023-02-18] MEDS ORDERED: potassium Cl 40MEQ/1/2NS 520ml 520 ML IV PRN ×3 (12:30)
[2023-02-18] MEDS ORDERED: HYDROmorphone/PF 0.2 MG/ML SYRINGE IV PRN (12:30)
[2023-02-18] MEDS ORDERED: INSU100V56 SQ (14:33)
[2023-02-18 16:03] LABS: ALBUMIN 3.4 G/DL (3.4-5.0); ANION GAP 11 (8-16); BLOOD UREA NITROGEN 16 MG/DL (7-18); BUN/CREATININE RATIO 17.6 (10.0-20.0); CALCIUM 8.2 MG/DL (8.5-10.1); CHLORIDE 108 MMOL/L (99-107); CREATININE 0.91 MG/DL (0.60-1.10); GLUCOSE 193 MG/DL (70-104); POTASSIUM 3.2 MMOL/L (3.5-5.1); SODIUM 143 MMOL/L (135-145); TOTAL CARBON DIOXIDE 24.2 MMOL/L (24-32); eGFR > 90 ML/MIN
[2023-02-18 16:07] LABS: PHOSPHORUS 1.1 MG/DL (2.3-4.5)
[2023-02-18] MEDS: hydrocortisone sod succ/PF 100mg/2ml inj. IV SCH ×2 (16:11→20:00)
[2023-02-18] MEDS ORDERED: sodium phosphate inj. 30 MMOL in dextrose 5%-water 250 ML IV ONE (17:10)
[2023-02-18] MEDS ORDERED: insulin Lispro (HumaLOG) vial - multi-dose SQ SCH (17:35)
[2023-02-18] MEDS ORDERED: DEXTROSE 15 GM of carb/4 tabs (each vial/BOTTLE has 4 tablets) PO PRN ×2 (17:35)
[2023-02-18] MEDS ORDERED: glucagon, human recombinant 1mg kit SUBCUT PRN (17:35)
[2023-02-18] MEDS ORDERED: MESSAGE TO PHARMACY PO ONE (17:35)
[2023-02-18] MEDS ORDERED: dextrose 50%-water 50ml dispensing syringe IV PRN ×2 (17:35)
[2023-02-18] MEDS ORDERED: potassium Cl 40MEQ/1/2NS 520ml 520 ML IV ONE ×2 (17:50→18:50)
--- NOTE | 2023-02-18 18:21 | NUR ---
Received pt from ER w/ diagnosis of DKA. BG 120. Anion gap normalized at 11. Dr. Calderón notified. Orders received to stop Insulin gtt and start hyperglyemic protocol, change fluids to NS @ 100 ml/hr and to start carb controlled diet. Pt states he feels great now. KCL and Phos replacement started for K 3.2 & Phos 1.1.
[2023-02-18] MEDS: heparin, porcine 5000 units/ml vial SQ SCH (20:00)
[2023-02-18] MEDS: docusate sod 100mg capsule PO SCH (20:00)
[2023-02-18] MEDS: K and/or MAG REPLACEMENT MC SCH (20:00)
[2023-02-18] MEDS ORDERED: K and/or MAG REPLACEMENT MC SCH (20:00)
[2023-02-18] MEDS ORDERED: insulin glargine (Lantus) pen - multi-dose SQ SCH (21:00)
[2023-02-18] MEDS ORDERED: temazepam 15mg capsule PO PRN (21:00)
[2023-02-19] VITALS (9 sets, daily range): BP systolic 103–126; BP diastolic 55–75
[2023-02-19] MEDS: hydrocortisone sod succ/PF 100mg/2ml inj. IV SCH ×3 (02:00→08:16)
[2023-02-19] MEDS: normal saline 1000ml 1,000 ML IV SCH (03:35)
--- NOTE | 2023-02-19 04:21 | NUR ---
CALLED TWICE TO PHARMACY CLAIMED MEDS (SOLUCORTEF ) STILL NOT AVAILABLE CAUSE OF SHORTAGE WILL DISPENSE SOON THEY ARE AVAILABLE SOON
[2023-02-19 06:21] LABS: BASOPHILS # (AUTO) 0.1 X10'3 (0-0.2); BASOPHILS % (AUTO) 0.4 % (0-1); EOSINOPHILS # (AUTO) 0.1 X10'3 (0-0.9); EOSINOPHILS % (AUTO) 0.4 % (0-6); HEMATOCRIT 37.9 % (42.0-52.0); HEMOGLOBIN 12.8 g/dl (14.0-17.9); LYMPHOCYTES # (AUTO) 2.9 X10'3 (1.1-4.8); LYMPHOCYTES % (AUTO) 16.5 % (21-51); MEAN CORPUSCULAR HEMOGLOBIN 29.1 PG (27.0-31.0); MEAN CORPUSCULAR HGB CONC 33.6 g/dL (33.0-36.5); MEAN CORPUSCULAR VOLUME 86.6 FL (78-98); MEAN PLATELET VOLUME 8.7 FL (7.4-10.4); MONOCYTES # (AUTO) 1.3 X10'3 (0-0.9); MONOCYTES % (AUTO) 7.6 % (2-12); NEUTROPHILS # (AUTO) 13.3 X10'3 (1.8-7.7); NEUTROPHILS % (AUTO) 75.1 % (42-75); PLATELET COUNT 227 X10'3 (140-440); RED BLOOD COUNT 4.38 X10'6 (4.70-6.10); RED CELL DISTRIBUTION WIDTH 13.7 % (11.5-14.5); WHITE BLOOD COUNT 17.7 X10'3 (4.5-11.0)
--- NOTE | 2023-02-19 06:22 | NUR ---
Problems reprioritized. Patient report given, questions answered & plan of care reviewed with BERT DILL.
[2023-02-19 06:52] LABS: ALANINE AMINOTRANSFERASE 17 U/L (12-78); ALBUMIN 3.2 G/DL (3.4-5.0); ALBUMIN/GLOBULIN RATIO 1.2 (1.1-1.5); ALKALINE PHOSPHATASE 48 IU/L (46-116); ANION GAP 11 (8-16); ASPARTATE AMINO TRANSFERASE 12 U/L (10-37); BILIRUBIN,TOTAL 0.4 MG/DL (0.1-1.0); BLOOD UREA NITROGEN 12 MG/DL (7-18); BUN/CREATININE RATIO 18.2 (10.0-20.0); CALCIUM 8.1 MG/DL (8.5-10.1); CHLORIDE 106 MMOL/L (99-107); CREATININE 0.66 MG/DL (0.60-1.10); GLUCOSE 100 MG/DL (70-104); MAGNESIUM 1.8 MG/DL (1.5-2.4); PHOSPHORUS 3.6 MG/DL (2.3-4.5); POTASSIUM 3.2 MMOL/L (3.5-5.1); SODIUM 140 MMOL/L (135-145); TOTAL PROTEIN 5.8 G/DL (6.4-8.2); eGFR > 90 ML/MIN
[2023-02-19] MEDS: K and/or MAG REPLACEMENT MC SCH (07:01)
[2023-02-19] MEDS ORDERED: insulin glargine (Lantus) pen - multi-dose SQ SCH (08:00)
[2023-02-19] MEDS: heparin, porcine 5000 units/ml vial SQ SCH (08:00)
[2023-02-19] MEDS: docusate sod 100mg capsule PO SCH (08:00)
--- NOTE | 2023-02-19 09:11 | NUR ---
Discharged home. All belongings with patient. Pt states he feels great. Instructed to return to ER if symptoms reoccur.
== END 2023-02-19 09:12 | disposition home or self-care (01) | DRG 420 ==
LOC: ER 09:04 → ED HOLD 12:32 → ICU 2S 17:01
PROVIDERS: ADMIT Family Medicine; ATTEND Family Medicine
DX: E10.10 Type 1 diabetes mellitus with ketoacidosis without coma (principal); N17.0 Acute kidney failure with tubular necrosis; K85.90 Acute pancreatitis without necrosis or infection, unspecified; E27.1 Primary adrenocortical insufficiency; E03.9 Hypothyroidism, unspecified; E86.0 Dehydration; E87.1 Hypo-osmolality and hyponatremia; L80 Vitiligo; Z56.0 Unemployment, unspecified; Z79.4 Long term (current) use of insulin; Z82.49 Family history of ischemic heart disease and other diseases of the circulatory system; Z88.0 Allergy status to penicillin; Z79.899 Other long term (current) drug therapy
CPT/HCPCS: 36415; 36600; 80048; 80053; 82803; 82948; 83036; 83605; 83690; 83735; 84100; 84439; 84443; 85018; 85025; 93005; 99285; G0378; J1644; J1720; J1815; J2060; J2765; J3480; J3490; J7030; J7060

== ENCOUNTER 2023-04-21 13:05 | Emergency (ER) | payer MEDICAID ==
[~2023-04-21] VITALS: Ht 162.6 cm; Wt 46.0 kg
[~2023-04-21 13:05] MED LIST changes: -INSU100I31 SQ; +INSU100V56 SQ
[2023-04-21 13:36] VITALS: TEMP 98.4
--- NOTE | 2023-04-21 13:57 | NUR ---
B.SMaxine 336
[2023-04-21 14:32] LABS: BASOPHILS # (AUTO) 0.1 X10'3 (0-0.2); BASOPHILS % (AUTO) 1.2 % (0-1); EOSINOPHILS # (AUTO) 0.4 X10'3 (0-0.9); EOSINOPHILS % (AUTO) 6.3 % (0-6); HEMOGLOBIN 14.3 g/dl (14.0-17.9); LYMPHOCYTES % (AUTO) 29.9 % (21-51); MEAN CORPUSCULAR HEMOGLOBIN 29.1 PG (27.0-31.0); MEAN CORPUSCULAR HGB CONC 33.2 g/dL (33.0-36.5); MEAN CORPUSCULAR VOLUME 87.6 FL (78-98); MEAN PLATELET VOLUME 8.5 FL (7.4-10.4); MONOCYTES # (AUTO) 0.5 X10'3 (0-0.9); MONOCYTES % (AUTO) 6.9 % (2-12); NEUTROPHILS # (AUTO) 3.6 X10'3 (1.8-7.7); NEUTROPHILS % (AUTO) 55.7 % (42-75); PLATELET COUNT 223 X10'3 (140-440); RED BLOOD COUNT 4.91 X10'6 (4.70-6.10); RED CELL DISTRIBUTION WIDTH 13.3 % (11.5-14.5); WHITE BLOOD COUNT 6.5 X10'3 (4.5-11.0)
[2023-04-21 14:37] LABS: ALANINE AMINOTRANSFERASE 33 U/L (12-78); ALBUMIN 3.7 G/DL (3.4-5.0); ALBUMIN/GLOBULIN RATIO 1.2 (1.1-1.5); ALKALINE PHOSPHATASE 66 IU/L (46-116); ANION GAP 7 (8-16); ASPARTATE AMINO TRANSFERASE 14 U/L (10-37); BILIRUBIN,TOTAL 0.5 MG/DL (0.1-1.0); BLOOD UREA NITROGEN 21 MG/DL (7-18); BUN/CREATININE RATIO 23.9 (10.0-20.0); CALCIUM 9.1 MG/DL (8.5-10.1); CHLORIDE 100 MMOL/L (99-107); CREATININE 0.88 MG/DL (0.60-1.10); GLUCOSE 348 MG/DL (70-104); LIPASE 479 U/L (73-393); POTASSIUM 4.1 MMOL/L (3.5-5.1); SODIUM 136 MMOL/L (135-145); TOTAL CARBON DIOXIDE 29.1 MMOL/L (24-32); TOTAL PROTEIN 6.8 G/DL (6.4-8.2); eCRCL 74 ML/MIN; eGFR > 90 ML/MIN
[2023-04-21 14:41] LABS: BILIRUBIN,URINE NEGATIVE (Neg); CLARITY,URINE CLEAR (Clear); COLOR,URINE YELLOW (Yellow); GLUCOSE, URINE >=1000 mg/dl (Neg); KETONES,URINE 15 mg/dl (Neg); LEUKOCYTE ESTERASE ,URINE NEGATIVE (Neg); NITRITES, URINE NEGATIVE (Neg); OCCULT BLOOD,URINE NEGATIVE (Neg); PROTEIN,URINE NEGATIVE (Neg); UROBILINOGEN,URINE 0.2 E.U/dL (0.2-1.0)
[2023-04-21 15:46] LABS: UA COLLECTION TYPE CLN CATCH MIDSTREAM
[2023-04-21] MEDS ORDERED: iohexol 300mg/ml 100ml inj. ONE (15:55)
[2023-04-21 16:12] LABS: BACTERIA,URINE NONE SEEN /HPF (Neg); RBC,URINE NONE SEEN /HPF (0-2); SQUAMOUS EPITHELIAL CELL,UR NONE SEEN /LPF (FEW); WBC,URINE 0-4 /HPF (0-4)
[2023-04-21 16:22] LABS: BASOPHILS # (AUTO) 0.1 X10'3 (0-0.2); BASOPHILS % (AUTO) 1.5 % (0-1); EOSINOPHILS # (AUTO) 0.3 X10'3 (0-0.9); EOSINOPHILS % (AUTO) 3.5 % (0-6); HEMATOCRIT 41.2 % (42.0-52.0); HEMOGLOBIN 13.8 g/dl (14.0-17.9); LYMPHOCYTES # (AUTO) 1.9 X10'3 (1.1-4.8); LYMPHOCYTES % (AUTO) 25.6 % (21-51); MEAN CORPUSCULAR HGB CONC 33.6 g/dL (33.0-36.5); MEAN CORPUSCULAR VOLUME 86.3 FL (78-98); MEAN PLATELET VOLUME 8.4 FL (7.4-10.4); MONOCYTES # (AUTO) 0.4 X10'3 (0-0.9); MONOCYTES % (AUTO) 5.5 % (2-12); NEUTROPHILS # (AUTO) 4.7 X10'3 (1.8-7.7); NEUTROPHILS % (AUTO) 63.9 % (42-75); PLATELET COUNT 228 X10'3 (140-440); RED BLOOD COUNT 4.78 X10'6 (4.70-6.10); RED CELL DISTRIBUTION WIDTH 13.1 % (11.5-14.5); WHITE BLOOD COUNT 7.3 X10'3 (4.5-11.0)
[2023-04-21 16:35] LABS: MAGNESIUM 1.8 MG/DL (1.5-2.4); PHOSPHORUS 2.8 MG/DL (2.3-4.5)
[2023-04-21] MEDS ORDERED: ringers solution, lacted 1,000 ML IV ONE (17:15)
[2023-04-21 18:45] VITALS: BP 128/87; PULSE 65; RESP 20; O2SAT 97
== END 2023-04-21 19:24 | disposition left against medical advice (07) ==
LOC: ER 13:05
DX: R53.1 Weakness (principal); Z53.21 Procedure and treatment not carried out due to patient leaving prior to being seen by health care provider
CPT/HCPCS: 36415; 74177; 80053; 81001; 82150; 82948; 83690; 83735; 84100; 84484; 85025; 99281; J3490; J7120; Q9967

== ENCOUNTER 2024-07-12 08:41 | Inpatient (IN) | payer MEDICAID ==
[~2024-07-12] VITALS: Ht 162.6 cm; Wt 50.9 kg
[2024-07-12 08:52] VITALS: TEMP 98.3
[2024-07-12 09:17] LABS: BASOPHILS # (AUTO) 0.1 X10'3 (0-0.2); BASOPHILS % (AUTO) 0.8 % (0-1); EOSINOPHILS # (AUTO) 0.7 X10'3 (0-0.9); EOSINOPHILS % (AUTO) 7.8 % (0-6); HEMATOCRIT 42.4 % (42.0-52.0); HEMOGLOBIN 14.5 g/dl (14.0-17.9); LYMPHOCYTES # (AUTO) 2.6 X10'3 (1.1-4.8); LYMPHOCYTES % (AUTO) 30.5 % (21-51); MEAN CORPUSCULAR HEMOGLOBIN 29.3 PG (27.0-31.0); MEAN CORPUSCULAR HGB CONC 34.1 g/dL (33.0-36.5); MEAN CORPUSCULAR VOLUME 85.8 FL (78-98); MEAN PLATELET VOLUME 8.6 FL (7.4-10.4); MONOCYTES # (AUTO) 0.7 X10'3 (0-0.9); MONOCYTES % (AUTO) 8.3 % (2-12); NEUTROPHILS # (AUTO) 4.4 X10'3 (1.8-7.7); NEUTROPHILS % (AUTO) 52.6 % (42-75); PLATELET COUNT 261 X10'3 (140-440); RED BLOOD COUNT 4.94 X10'6 (4.70-6.10); RED CELL DISTRIBUTION WIDTH 13.1 % (11.5-14.5); WHITE BLOOD COUNT 8.4 X10'3 (4.5-11.0)
[2024-07-12 09:29] LABS: ALANINE AMINOTRANSFERASE 22 U/L (12-78); ALBUMIN 3.7 G/DL (3.4-5.0); ALBUMIN/GLOBULIN RATIO 1.1 (1.1-1.5); ALKALINE PHOSPHATASE 55 IU/L (46-116); AMYLASE 116 U/L (25-115); ANION GAP 11 (8-16); ASPARTATE AMINO TRANSFERASE 17 U/L (10-37); BILIRUBIN,TOTAL 0.7 MG/DL (0.1-1.0); BLOOD UREA NITROGEN 14 MG/DL (7-18); BUN/CREATININE RATIO 15.7 (10.0-20.0); CALCIUM 8.8 MG/DL (8.5-10.1); CHLORIDE 100 MMOL/L (99-107); CREATININE 0.89 MG/DL (0.60-1.10); GLUCOSE 393 MG/DL (70-104); LIPASE 268 U/L (16-77); POTASSIUM 4.8 MMOL/L (3.5-5.1); SODIUM 137 MMOL/L (135-145); TOTAL CARBON DIOXIDE 25.9 MMOL/L (24-32); TOTAL PROTEIN 7.1 G/DL (6.4-8.2); eCRCL 80 ML/MIN; eGFR > 90 ML/MIN
[2024-07-12] MEDS: normal saline 1000ML IV soln IVB ONE (10:23)
[2024-07-12] MEDS: insulin regular, human 10 units/0.1 ml syringe IV ONE (10:23)
[2024-07-12] MEDS ORDERED: magnesium Cl slow-release 64mg tablet PO PRN (11:00)
[2024-07-12] MEDS ORDERED: HYDROcodone/acetaminophen 5mg/325mg tablet PO PRN (11:00)
[2024-07-12] MEDS ORDERED: potassium Cl 40MEQ/1/2NS 520ml 520 ML IV PRN (11:00)
[2024-07-12] MEDS ORDERED: potassium Cl 20 mEq SR tablet PO PRN ×2 (11:00)
[2024-07-12] MEDS ORDERED: ondansetron/PF 4mg/2ml inj IV PRN (11:00)
[2024-07-12] MEDS ORDERED: acetaminophen 325mg tablet PO PRN (11:00)
[2024-07-12] MEDS ORDERED: magnesium sulf-water 4G/100mL 100 ML IV PRN (11:00)
[2024-07-12] MEDS ORDERED: morphine 2 MG/ML inj. syringe IV PRN (11:00)
[2024-07-12] MEDS ORDERED: magnesium sulf-water 2g/50mL 50 ML IV PRN (11:00)
[2024-07-12] MEDS: normal saline 1000ml 1,000 ML IV SCH (11:06)
[2024-07-12 11:19] LABS: ETHANOL < 10 MG/DL (<10); MAGNESIUM 1.5 MG/DL (1.5-2.4)
[2024-07-12 11:48] VITALS: BP 117/75; PULSE 65; RESP 18; O2SAT 97
[2024-07-12 12:46] LABS: BILIRUBIN,URINE NEGATIVE (Neg); CLARITY,URINE CLEAR (Clear); COLOR,URINE YELLOW (Yellow); GLUCOSE, URINE >=1000 mg/dl (Neg); KETONES,URINE >=80 mg/dl (Neg); LEUKOCYTE ESTERASE ,URINE NEGATIVE (Neg); NITRITES, URINE NEGATIVE (Neg); OCCULT BLOOD,URINE NEGATIVE (Neg); PROTEIN,URINE NEGATIVE (Neg); UROBILINOGEN,URINE 0.2 E.U/dL (0.2-1.0)
[2024-07-12 12:48] LABS: UA COLLECTION TYPE CLN CATCH MIDSTREAM
[2024-07-12 12:57] LABS: BACTERIA,URINE NONE SEEN /HPF (Neg); RBC,URINE NONE SEEN /HPF (0-2); SQUAMOUS EPITHELIAL CELL,UR NONE SEEN /LPF (FEW); WBC,URINE NONE SEEN /HPF (0-4)
[2024-07-12 13:05] LABS: URINE AMPHETAMINE SCREEN NEGATIVE (Neg); URINE BARBITUATE SCREEN NEGATIVE (Neg); URINE BENZODIAZEPINES SCREEN NEGATIVE (Neg); URINE CANNABINOID SCREEN POSITIVE (Neg); URINE COCAINE SCREEN NEGATIVE (Neg); URINE METHADONE SCREEN NEGATIVE (Neg); URINE OPIATE SCREEN NEGATIVE (Neg); URINE PHENCYCLIDINE SCREEN NEGATIVE (Neg)
[2024-07-12] MEDS ORDERED: K and/or MAG REPLACEMENT MC SCH (20:00)
== END 2024-07-12 14:21 | disposition left against medical advice (07) | DRG 282 ==
LOC: ER 08:42 → ED HOLD 11:02
PROVIDERS: ADMIT Internal Medicine; ATTEND Internal Medicine
DX: K85.90 Acute pancreatitis without necrosis or infection, unspecified (principal); E27.1 Primary adrenocortical insufficiency; E11.65 Type 2 diabetes mellitus with hyperglycemia; E03.9 Hypothyroidism, unspecified; E86.0 Dehydration; Z53.29 Procedure and treatment not carried out because of patient's decision for other reasons; Z79.899 Other long term (current) drug therapy; Z79.4 Long term (current) use of insulin; Z88.0 Allergy status to penicillin
CPT/HCPCS: 36415; 80053; 80305; 80320; 81001; 82150; 82948; 83690; 83735; 85025; 87081; 96374; 99285; G0378; J1815; J7030

== ENCOUNTER 2025-07-08 09:21 | Emergency (ER) | payer MEDICAID, SELFPAY ==
[~2025-07-08] VITALS: Ht 162.6 cm; Wt 52.3 kg
--- NOTE | 2025-07-08 09:55 | Physician Documentation ---
History of Present Illness ~ Chief Complaint: Vomiting w/diarrhea Stated Complaint: NAUSEA Time Seen by MD: 09:27 Primary Medical Doctor: [facility] Source: patient Mode of Arrival: POV Exam Limitations: no limitations HPI 39-year-old male with chief complaint nausea that started around 3:00 a.m. this morning. Last night apparently his insulin pump stopped working and when he woke up around 3:00 a.m. his blood sugar was over 400. Father who brought him to the emergency room this morning is concerned about DKA which he has had in the past. Father states he has since gotten the insulin pump to work so his blood sugar is down now but patient has been vomiting since waking up around 3:00 a.m.. Patient also reports diarrhea. He denies abdominal pain, fever, chills, chest pain, shortness of breath, lightheadedness. Medication Reconciliation Allergies: Coded Allergies: Penicillins (Verified Allergy, Unknown, 07/08/25) Scheduled Fludrocortisone Acetate (Fludrocortisone Acetate), 1 TAB PO DAILY, (Reported) Insulin Glargine,Hum.rec.anlog (Insulin Glargine), 20 UNITS SQ BID, (Reported) Insulin Lispro (Insulin Lispro), 1 UNIT SQ SLIDING SCALE, (Reported) Levothyroxine Sodium (Levothyroxine Sodium), 1 TAB PO DAILY, (Reported) Potassium Chloride (Potassium Chloride), 1 TAB PO DAILY Prednisone (predniSONE tablet), 4 TAB PO DAILY, (Reported) Scheduled PRN Ondansetron HCl (Ondansetron HCl), 1 TAB PO TID PRN for nausea/vomiting Past Medical History Past Medical History: *ENDOCRINE*, Diabetes, Hypothyroidism Past Surgical History: noncontributory Patient History: FH: heart disease Maternal grandfather Alcohol Use: None Drug Use: none Lives with: Family Lives In: Home Occupation: unemployed Review of Systems All Other Systems at this time: Reviewed and Negative Physical Exam Vital Signs: Temperature: 98.5, Source: Oral, Heart Rate: 92, Respiratory Rate: 18, BP: 141/82, Pulse Oximetry: 95, Weight: 52.300 Oxygen Flow Rate: 0 Physical Exam GENERAL: Alert, mild distress appears nauseated holding emesis bag but emesis bag is empty HEENT: NCAT, EOMI, PERRL, normal oropharynx, moist oral mucosa. NECK: Supple, trachea midline. CARDIAC: Regular rate and rhythm, no murmurs, rubs, or gallops. Equal distal pulses. No lower extremity edema, cap refill less than 2 seconds. RESPIRATORY: Equal breath sounds, clear to auscultation bilaterally, no respiratory distress. GASTROINTESTINAL: Non distended, soft, nontender, No guarding or rebound. MUSCULOSKELETAL: Normal range of motion, nontender, no swelling. Normal gait. NEUROLOGICAL: Awake, alert, and oriented x 3. SKIN: Warm/dry, no pallor, no rash. PSYCH: Alert and appropriate. Affect congruent with mood. Speech is clear. Good eye contact. Progress Results/Orders Results/Orders Orders - GAY RAI Accucheck (07/08/25 09:42) Accucheck (07/08/25 10:42) Accucheck (07/08/25 11:42) Observation Status Start (07/08/25 09:42) Completed Orders - GAY RAI Cbc/Diff (07/08/25 09:42) Lipase (07/08/25 09:42) BMP (07/08/25 09:42) Normal Saline 1000ml (0.9% Sodium Chlori (07/08/25 09:45) Prochlorperazine Inj (Compazine Inj) (07/08/25 10:05) Potassium Cl Inj (Potassium Cl Inj) (07/08/25 10:25) MG (07/08/25 10:00) Ua W/Microscopic, Cult If Ind (07/08/25 12:03) Bmp Er (07/08/25 12:53) Potassium Cl Sr Tablet (K-Dur Tablet) (07/08/25 14:51) Medications Received in ER Medications (Trade) Dose Ordered Sig/Liliya Route PRN Reason Start Time Stop Time Status Last Admin Dose Admin (K-DUR tablet) 40 meq ONCE STAT PO 07/08/25 14:51 07/08/25 14:58 DC 07/08/25 15:16 40 MEQ Vital Signs 07/08/25 07/08/25 07/08/25 07/08/25 09:23 09:38 09:41 10:00 Temp 101.1 98.5 Pulse 100 92 82 Resp 20 18 18 12 B/P (MAP) 202/58 141/82 (101) 115/84 (94) Pulse Ox 100 95 95 O2 Flow Rate 0 0 07/08/25 07/08/25 07/08/25 07/08/25 10:15 10:30 11:00 11:30 Pulse 71 70 81 80 Resp 11 12 12 13 B/P (MAP) 147/72 (97) 123/73 (90) 116/78 (91) 110/65 (80) Pulse Ox 96 97 96 97 07/08/25 07/08/25 12:41 15:24 Temp 100.7 Pulse 94 102 Resp 14 12 B/P (MAP) 126/73 (90) 136/76 Pulse Ox 98 99 O2 Flow Rate 0 Laboratory Tests Test 07/08/25 10:00 07/08/25 11:55 07/08/25 12:03 07/08/25 13:04 White Blood Count 8.0 Red Blood Count 4.12 L Hemoglobin 12.2 L Hematocrit 34.8 L Mean Corpuscular Volume 84.5 Mean Corpuscular Hemoglobin 29.6 Mean Corpuscular Hemoglobin Concent 35.0 Red Cell Distribution Width 13.1 Platelet Count 150 Mean Platelet Volume 9.1 Neutrophils (%) (Auto) 69.6 Lymphocytes (%) (Auto) 15.8 L Monocytes (%) (Auto) 9.7 Eosinophils (%) (Auto) 4.0 Basophils (%) (Auto) 0.9 Neutrophils # (Auto) 5.5 Lymphocytes # (Auto) 1.3 Monocytes # (Auto) 0.8 Eosinophils # (Auto) 0.3 Basophils # (Auto) 0.1 CBC Comment Sodium Level 144 142 Potassium Level 2.7 *L 3.0 *L Chloride Level 108 H 108 H Carbon Dioxide Level 27.8 26.4 Anion Gap 8 8 Blood Urea Nitrogen 19 H 17 Creatinine 0.87 0.76 Estimated GFR/1.73 m2 > 90 > 90 BUN/Creatinine Ratio 21.8 H 22.4 H Glucose Level 152 H 92 Calcium Level 8.6 8.1 L Magnesium Level 1.4 L Albumin 3.6 3.2 L Lipase 101 H Chemistry Comments Glucometer 97 Urine Specimen Description Urinal Urine Color Yellow Urine Clarity Clear Urine pH 8.5 Urine Specific [place] 1.015 Urine Protein Trace Urine Glucose (UA) 100 H Urine Ketones Negative Urine Occult Blood Negative Urine Nitrite Negative Urine Bilirubin Negative Urine Urobilinogen 1.0 Urine Leukocyte Esterase Negative Urine RBC 0-2 Urine WBC 0-4 Urine Squamous Epithelial Cells None seen Urine Bacteria None seen Urine Mucus Few Urine Culture Indicated Not ind Volume Urine Centrifuged 10 ml Urine Comment Medical Decision Making Additional information obtaine: N/A Findings n/a Diff Dx GI Bleed:Consideration: Unlikely: Other Diff Dx Pain:Considerations: Unlikely: Other Diff Dx N/V/D:Considerations: Include: Appendicitis, Bowel obstruction, Dehydration, DKA, Diarrhea - bacterial, Diarrhea - parasitic, Diarrhea - viral, Diverticulitis, Diverticulosis, Drug toxicity, Electrolyte imbalance, Food poisoning, Gastroenteritis, GE reflux, GI bleed, Hepatitis, Hernia, Hypovolemia, Hypotension, Inflammatory BD, Impaction, Malnutrition, Pancreatitis, PUD, Renal failure, Urinary obstruction, UTI, Urolithiasis Diff Dx Rectal:Considerations: Unlikely: Other Departure Time of Disposition: 14:51 Disposition: 01 HOME / SELF CARE / HOMELESS Impression: Primary Impression: Vomiting Qualified Codes: R11.2 - Nausea with vomiting, unspecified Additional Impressions: Insulin dependent diabetes mellitus Hypokalemia Condition: Stable Discharge Instructions: Hypokalemia Additional Instructions: potassium script sent to pharmacy along with medication for nausea you have not vomited during the 5hours you spent in the er which is reassuring you are not in dka your potassium is still low, so I want you to take potassium for the next 5days Referrals: NO PRIMARY CARE PROVIDER (PCP) Prescriptions Ondansetron HCl (Ondansetron HCl) 4 Mg Tablet 1 TAB PO TID PRN for nausea/vomiting, #6 TAB 0 Refills Prov: GAY RAI 07/08/25 Potassium Chloride (Potassium Chloride) 20 Meq Tab.prt.sr 1 TAB PO DAILY for 5 Days, #5 TAB 0 Refills Prov: GAY RAI 07/08/25 Education Educated: Patient Educated regarding: diagnosis, treatment, need for follow up Signature Scribe Signature: x Attestation: GAY Patrick Jul 08, 2025 09:55
[2025-07-08] MEDS: normal saline 1000ML IV soln IVB ONE (10:04)
[2025-07-08 10:06] LABS: MEAN PLATELET VOLUME 9.1 FL (7.4-10.4); RED CELL DISTRIBUTION WIDTH 13.1 % (11.5-14.5)
[2025-07-08 10:17] LABS: CREATININE 0.87 MG/DL (0.60-1.10); TOTAL CARBON DIOXIDE 27.8 MMOL/L (24-32); eCRCL 83 ML/MIN; eGFR > 90 ML/MIN
[2025-07-08] MEDS: Potassium Cl inj 40 MEQ in normal saline 500ml IV soln 500 ML IV ONE (11:05)
[2025-07-08 12:23] LABS: LEUKOCYTE ESTERASE ,URINE NEGATIVE (Neg); NITRITES, URINE NEGATIVE (Neg); OCCULT BLOOD,URINE NEGATIVE (Neg)
[2025-07-08 12:29] LABS: UA COLLECTION TYPE URINAL
[2025-07-08 12:30] LABS: MUCUS STRANDS FEW /LPF (Neg); SQUAMOUS EPITHELIAL CELL,UR NONE SEEN /LPF (FEW)
[2025-07-08 12:41] VITALS: TEMP 100.7
[2025-07-08 13:27] LABS: CREATININE 0.76 MG/DL (0.60-1.10); TOTAL CARBON DIOXIDE 26.4 MMOL/L (24-32); eCRCL 96 ML/MIN; eGFR > 90 ML/MIN
[2025-07-08] MEDS ORDERED: POTA-208 PO (14:50)
[2025-07-08] MEDS ORDERED: ONDA-103 PO (14:51)
[2025-07-08] MEDS: potassium Cl 20 mEq SR tablet PO STA (15:16)
[2025-07-08 15:24] VITALS: BP 136/76; PULSE 102; RESP 12; O2SAT 99
== END 2025-07-08 15:26 | disposition home or self-care (01) ==
LOC: ER 09:22
DX: E87.6 Hypokalemia (principal); R11.2 Nausea with vomiting, unspecified; E11.9 Type 2 diabetes mellitus without complications; E03.9 Hypothyroidism, unspecified; Z88.0 Allergy status to penicillin; Z79.4 Long term (current) use of insulin; Z79.899 Other long term (current) drug therapy; Z56.0 Unemployment, unspecified
CPT/HCPCS: 36415; 80048; 81001; 82948; 83690; 83735; 85025; 96361; 96365; 96366; 99285; J3480; J7030; J7040